=== PATIENT | male | born 1950 | race Caucasian/White ===

== ENCOUNTER 2019-10-21 01:20 | Outpatient (CLI) | payer OTHER, SELFPAY ==
[2019-10-21 18:35] LABS: SARS-CoV-2 RNA PCR Negative
== END 2019-10-21 01:21 | disposition home or self-care (01) ==
LOC: ANHCOVIDDT 01:21
PROVIDERS: Visit Provider Internal Medicine Gastroenterology
DX: Z01.812 Encounter for preprocedural laboratory examination (principal); Z11.59 Encounter for screening for other viral diseases
CPT/HCPCS: 87635; C9803; U0003

== ENCOUNTER 2019-10-23 01:36 | Day surgery (SDC) | payer OTHER, SELFPAY ==
[2019-10-15 13:52] VITALS: BMI 31.9
[2019-10-23 08:17] VITALS: BP 152/94; PULSE 72; RESP 20; TEMP 36.4; O2SAT 97; BMI 32.1
[2019-10-23] MEDS: LACTATED RINGERS 1,000 ML 150 ML IV CONT (08:29)
--- NOTE | 2019-10-23 08:32 | WPDANESEPPF ---
Anes - Initial Pre Proc Eval Procedure: Operation Date: 10/23/19 09:00 Proposed Procedures p Esophagogastroduodenoscopy & Colonoscopy - Paul Story MD Date/Time: 10/23/19 08:32 Surgeon: Paul Story MD Pre Op Diagnosis: Iron Deficient Anemia Patient Data Age: 69 Gender: M Height: 5 ft 10 in Weight: 101.6 kg Last Vital Signs Temp 36.4 C L 10/23/19 08:17 Pulse 72 10/23/19 08:17 Resp 20 10/23/19 08:17 BP 152/94 H 10/23/19 08:17 Pulse Ox 97 10/23/19 08:17 Allergies Allergy/AdvReac Type Severity Reaction Status Date / Time Penicillins Allergy Severe HIVES Verified 10/23/19 08:16 Sulfa (Sulfonamide Allergy Severe HIVES Verified 10/23/19 08:16 Antibiotics) Home Medications Medication Instructions Recorded Confirmed Type amphetamine sulfate 10 mg tablet 30 mg PO BID tablet 09/29/19 10/15/19 History atorvastatin 40 mg tablet 40 mg PO DAILY 09/29/19 10/15/19 History bupropion HCl 100 mg tablet 200 mg PO BID tablet 09/29/19 10/15/19 History buspirone 30 mg tablet 30 mg PO BID 09/29/19 10/15/19 History clonidine HCl 0.1 mg tablet 0.1 mg PO BID tablet 09/29/19 10/15/19 History diazepam 10 mg tablet 10 mg PO TID PRN 09/29/19 10/23/19 History ketoconazole 2 % topical cream 1 applic TOPICAL BID PRN 09/29/19 10/15/19 History levothyroxine 137 mcg capsule 137 mcg PO DAILY 09/29/19 10/15/19 History omeprazole 40 mg capsule,delayed 40 mg PO BID 09/29/19 10/15/19 History release tamsulosin 0.4 mg capsule 0.4 mg PO DAILY 09/29/19 10/15/19 History tretinoin 0.05 % topical cream 1 applic TOPICAL ONCE 09/29/19 10/15/19 History triamcinolone acetonide 0.1 % 1 applic TOPICAL BID 09/29/19 10/15/19 History topical cream Patient hx anesthesia problems: none Family hx anesthesia problems: none PMFSH Past Medical History Medical History Anemia Arthritis Eczema GERD (gastroesophageal reflux disease) Hearing loss Hoarseness Hypothyroidism Shortness of breath Sleep apnea Urinary frequency Weight gain Surgical History Surgical History Hx of CABG Family History Family History Other Arthritis Social History Social History Smoking status: Never smoker Alcohol intake: current Drinks per week: 8 Anes - Eval Final PreProcedure Day of Procedure 10/23/19 08:32 Patient weight: obese Heart: regular rate and rhythm Lungs: clear to auscultation Airway: Mallampati scale class II Neurological: alert and oriented Last oral intake: >/= 8 hours ASA classification: III Emergent: no Anesthetic plan: proceed Anesthesia type and monitoring: general GIVS and standard monitoring Informed Consent: The patient's anesthetic plan and its attendant risks and benefits were discussed with the patient/family/POA. Questions were solicited and answers provided to the satisfaction of the patient/family/POA.
--- NOTE | 2019-10-23 08:37 | PM.HPGS ---
History of Present Illness History of Present Illness Consent: Risks, benefits, and alternatives have been discussed and questions answered. Patient agrees to proceed with procedure. Chief complaint: Iron Deficient Anemia Narrative: Scott Dejesus is a 69 year old W male referred for gastroscopy and colonoscopy for evaluation of iron deficiency anemia. I saw this patient 2 years ago when he was referred for EGD for follow-up of Garcia's esophagus. This was confirmed there was no evidence of dysplasia in the biopsies. Patient is on chronic PPI therapy. He also had been on nonsteroidal inflammatory drugs and did have a gastritis at that time suspicious for vascular antral ectasia. I recommended he discontinue the nonsteroidal inflammatory drugs repeat gastroscopy. Fortunately only stop those a month ago. He has no GI tract symptoms. His last colonoscopy was in 2015 performed by another examiner in [place] which time multiple polyps were removed. There is no family history of colon polyps or colon cancer. [facility] Past Medical History Medical History Anemia Arthritis Eczema GERD (gastroesophageal reflux disease) Hearing loss Hoarseness Hypothyroidism Shortness of breath Sleep apnea Urinary frequency Weight gain Surgical History Surgical History Hx of CABG Family History Family History Other Arthritis Social History Social History Smoking status: Never smoker Alcohol intake: current Drinks per week: 8 Meds Home Medications and Allergies Home Medications Medication Instructions Recorded Confirmed Type amphetamine sulfate 10 mg tablet 30 mg PO BID tablet 09/29/19 10/15/19 History atorvastatin 40 mg tablet 40 mg PO DAILY 09/29/19 10/15/19 History bupropion HCl 100 mg tablet 200 mg PO BID tablet 09/29/19 10/15/19 History buspirone 30 mg tablet 30 mg PO BID 09/29/19 10/15/19 History clonidine HCl 0.1 mg tablet 0.1 mg PO BID tablet 09/29/19 10/15/19 History diazepam 10 mg tablet 10 mg PO TID PRN 09/29/19 10/23/19 History ketoconazole 2 % topical cream 1 applic TOPICAL BID PRN 09/29/19 10/15/19 History levothyroxine 137 mcg capsule 137 mcg PO DAILY 09/29/19 10/15/19 History omeprazole 40 mg capsule,delayed 40 mg PO BID 09/29/19 10/15/19 History release tamsulosin 0.4 mg capsule 0.4 mg PO DAILY 09/29/19 10/15/19 History tretinoin 0.05 % topical cream 1 applic TOPICAL ONCE 09/29/19 10/15/19 History triamcinolone acetonide 0.1 % 1 applic TOPICAL BID 09/29/19 10/15/19 History topical cream Allergies Allergy/AdvReac Type Severity Reaction Status Date / Time Penicillins Allergy Severe HIVES Verified 10/23/19 08:16 Sulfa (Sulfonamide Allergy Severe HIVES Verified 10/23/19 08:16 Antibiotics) Vital Signs Vital Signs - 24 hr 10/23/19 08:17 Temperature 36.4 C L Pulse Rate 72 Respiratory Rate 20 Blood Pressure 152/94 H Pulse Oximetry 97 Exam Const: Orientation/consciousness: patient oriented x3 Resp: Auscultation: clear to auscultation bilaterally Cardio: Rate: regular rate Rhythm: regular rhythm Heart sounds: no murmurs GI: GI Palp: Yes Soft to palpation, No Tenderness to palpation present (GI), Yes No hepatosplenomegaly present and No Palpable mass present Auscultation: normal bowel sounds Neuro: General: patient oriented x3 and no focal motor deficits Extrem: General: no pedal edema Assessment and Plan Additional Plan EGD and colonoscopy for evaluation of iron deficiency anemia
[2019-10-23] MEDS: SIMETHICONE ORAL SUSPENSION 20 MG/0.3 ML 30 ML BOTTLE 0.6 ML IRRIGATION (09:32)
[2019-10-23 09:59] VITALS: BP 104/69; PULSE 71; RESP 18; O2SAT 93
[2019-10-23 10:09] VITALS: BP 130/78; PULSE 69; RESP 23; O2SAT 97
[2019-10-23 10:19] VITALS: BP 146/81; PULSE 67; RESP 24; O2SAT 98
== END 2019-10-23 10:45 | disposition home or self-care (01) ==
PROVIDERS: PCP Internal Medicine; Visit Provider Internal Medicine Gastroenterology
PROC: 0DJ08ZZ Inspection of Upper Intestinal Tract, Via Natural or Artificial Opening Endoscopic (ICD-10-PCS; CPT 43235; principal; 2019-10-23 09:00)
DX: D50.9 Iron deficiency anemia, unspecified (principal); K22.70 Barrett's esophagus without dysplasia; K31.819 Angiodysplasia of stomach and duodenum without bleeding; K21.0 Gastro-esophageal reflux disease with esophagitis; K64.8 Other hemorrhoids; K64.4 Residual hemorrhoidal skin tags; K57.30 Diverticulosis of large intestine without perforation or abscess without bleeding; Z86.010 Personal history of colon polyps; E03.9 Hypothyroidism, unspecified; L30.9 Dermatitis, unspecified; G47.30 Sleep apnea, unspecified; Z95.1 Presence of aortocoronary bypass graft; E66.9 Obesity, unspecified; Z68.32 Body mass index [BMI] 32.0-32.9, adult
CPT/HCPCS: 43239; 43270; 45378; 88305; J2704; J7120

== ENCOUNTER → 2020-07-05 04:13 | Outpatient (CLI) | payer MEDICARE, SELFPAY ==
[2020-07-05 19:58] LABS: SARS-CoV-2 RNA PCR Negative
== END ==
PROVIDERS: PCP Family Medicine; Visit Provider Internal Medicine Gastroenterology
DX: Z01.812 Encounter for preprocedural laboratory examination (principal); Z20.822 Contact with and (suspected) exposure to COVID-19
CPT/HCPCS: C9803; U0003; U0005

== ENCOUNTER 2020-07-08 01:12 | Day surgery (SDC) | payer MEDICARE, SELFPAY ==
[2020-06-29 14:33] VITALS: BMI 30.7
--- NOTE | 2020-07-07 11:28 | WPDANESEPPF ---
Anes - Initial Pre Proc Eval Procedure: Operation Date: 07/08/20 09:45 Proposed Procedures p Esophagogastroduodenoscopy - Maxx Ramirez MD Date/Time: 07/07/20 11:28 Surgeon: Maxx Ramirez MD Pre Op Diagnosis: barrets esophagus Patient Data Age: 70 Gender: M Height: 1.78 m Weight: 97.2 kg Allergies Allergy/AdvReac Type Severity Reaction Status Date / Time Penicillins Allergy Severe HIVES Verified 07/08/20 09:22 Sulfa (Sulfonamide Allergy Severe HIVES Verified 07/08/20 09:22 Antibiotics) Home Medications Medication Instructions Recorded Confirmed Type amphetamine sulfate 10 mg tablet 30 mg PO BID tablet 09/29/19 06/29/20 History atorvastatin 40 mg tablet 40 mg PO DAILY 09/29/19 06/29/20 History bupropion HCl 100 mg tablet 200 mg PO BID tablet 09/29/19 06/29/20 History buspirone 30 mg tablet 30 mg PO BID 09/29/19 06/29/20 History diazepam 10 mg tablet 10 mg PO TID PRN 09/29/19 06/29/20 History ketoconazole 2 % topical cream 1 applic TOPICAL BID PRN 09/29/19 06/29/20 History levothyroxine 137 mcg capsule 137 mcg PO DAILY 09/29/19 06/29/20 History omeprazole 40 mg capsule,delayed 20 mg PO BID 09/29/19 06/29/20 History release tretinoin 0.05 % topical cream 1 applic TOPICAL ONCE 09/29/19 06/29/20 History triamcinolone acetonide 0.1 % 1 applic TOPICAL BID 09/29/19 06/29/20 History topical cream finasteride 5 mg tablet 5 mg PO DAILY 05/27/20 06/29/20 History meloxicam 15 mg tablet 15 mg PO DAILY 05/27/20 06/29/20 History tamsulosin 0.4 mg capsule 0.4 mg PO DAILY #90 cap 06/17/20 06/29/20 Rx clonidine HCl 0.1 mg tablet 0.1 mg PO Q8H #90 tablet 06/29/20 06/29/20 Rx sertraline 50 mg tablet 50 mg PO DAILY 06/29/20 06/29/20 History divalproex 250 mg PO DAILY 07/08/20 07/08/20 History Patient hx anesthesia problems: none Family hx anesthesia problems: none [facility] Past Medical History Medical History (Updated 07/07/20 @ 11:28 by Alvaro Winslow DO) ADD (attention deficit disorder) Anemia Arthritis AVM (arteriovenous malformation) of stomach, acquired CAD (coronary artery disease) Eczema GERD (gastroesophageal reflux disease) Hearing loss Hoarseness Hypertension Hypothyroidism Hypothyroidism (acquired) Shortness of breath Sleep apnea Urinary frequency Weight gain Surgical History Surgical History (Updated 07/07/20 @ 11:28 by Alvaro Winslow DO) S/P CABG x 3 Family History Family History Other Arthritis Social History Social History (Updated 06/29/20 @ 09:54 by Melissa Nelson) Social History: Smoking status: Never smoker Second hand tobacco smoke exposure: No Alcohol intake: current Drinks per week: 8 Alcohol use details: socially Substance use: never Substance use type: does not use Living arrangements: alone Gender identity (if verbalized by the patient): Male Spiritual care concerns: No Anes - Eval Final PreProcedure Day of Procedure 07/07/20 11:28 Patient weight: obese Heart: regular rate and rhythm Lungs: clear to auscultation and normal air movement Airway: Mallampati scale class II Neurological: alert and oriented Last oral intake: >/= 8 hours ASA classification: III Emergent: no Anesthetic plan: proceed Anesthesia type and monitoring: general GIVS and standard monitoring Informed Consent: The patient's anesthetic plan and its attendant risks and benefits were discussed with the patient/family/POA. Questions were solicited and answers provided to the satisfaction of the patient/family/POA.
[2020-07-08 09:23] VITALS: BP 172/97; PULSE 76; RESP 18; TEMP 36.7; O2SAT 97; BMI 31.2
[2020-07-08] MEDS: LACTATED RINGERS 1,000 ML 150 ML IV CONT (09:31)
--- NOTE | 2020-07-08 09:45 | PM.HPGS ---
History of Present Illness History of Present Illness Consent: Risks, benefits, and alternatives have been discussed and questions answered. Patient agrees to proceed with procedure. 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 He also has Garcia's esophagus Review of Systems Review of Systems: All systems reviewed & are unremarkable except as noted in HPI and below PMFSH Past Medical History Medical History ADD (attention deficit disorder) Anemia Arthritis AVM (arteriovenous malformation) of stomach, acquired CAD (coronary artery disease) Eczema GERD (gastroesophageal reflux disease) Hearing loss Hoarseness Hypertension Hypothyroidism Hypothyroidism (acquired) Shortness of breath Sleep apnea Urinary frequency Weight gain Surgical History Surgical History S/P CABG x 3 Family History Family History Other Arthritis Social History Social History Social History: Smoking status: Never smoker Second hand tobacco smoke exposure: No Alcohol intake: current Drinks per week: 8 Alcohol use details: socially Substance use: never Substance use type: does not use Living arrangements: alone Gender identity (if verbalized by the patient): Male Spiritual care concerns: No Meds Home Medications and Allergies Home Medications Medication Instructions Recorded Confirmed Type amphetamine sulfate 10 mg tablet 30 mg PO BID tablet 09/29/19 07/08/20 History atorvastatin 40 mg tablet 40 mg PO DAILY 09/29/19 07/08/20 History bupropion HCl 100 mg tablet 200 mg PO BID tablet 09/29/19 07/08/20 History buspirone 30 mg tablet 30 mg PO BID 09/29/19 07/08/20 History diazepam 10 mg tablet 10 mg PO TID PRN 09/29/19 07/08/20 History ketoconazole 2 % topical cream 1 applic TOPICAL BID PRN 09/29/19 07/08/20 History levothyroxine 137 mcg capsule 137 mcg PO DAILY 09/29/19 07/08/20 History omeprazole 40 mg capsule,delayed 20 mg PO BID 09/29/19 07/08/20 History release tretinoin 0.05 % topical cream 1 applic TOPICAL ONCE 09/29/19 07/08/20 History triamcinolone acetonide 0.1 % 1 applic TOPICAL BID 09/29/19 07/08/20 History topical cream finasteride 5 mg tablet 5 mg PO DAILY 05/27/20 07/08/20 History meloxicam 15 mg tablet 15 mg PO DAILY 05/27/20 07/08/20 History tamsulosin 0.4 mg capsule 0.4 mg PO DAILY #90 cap 06/17/20 07/08/20 Rx clonidine HCl 0.1 mg tablet 0.1 mg PO Q8H #90 tablet 06/29/20 07/08/20 Rx sertraline 50 mg tablet 50 mg PO DAILY 06/29/20 07/08/20 History divalproex 250 mg PO DAILY 07/08/20 07/08/20 History Allergies Allergy/AdvReac Type Severity Reaction Status Date / Time Penicillins Allergy Severe HIVES Verified 07/08/20 09:22 Sulfa (Sulfonamide Allergy Severe HIVES Verified 07/08/20 09:22 Antibiotics) Vital Signs Vital Signs - 24 hr 07/08/20 09:23 Temperature 36.7 C Pulse Rate 76 Respiratory Rate 18 Blood Pressure 172/97 H Pulse Oximetry 97 Exam Const: General: alert Orientation/consciousness: patient oriented x3 Resp: Auscultation: clear to auscultation bilaterally Cardio: Rhythm: regular rhythm GI: GI Palp: Yes Soft to palpation and No Tenderness to palpation present (GI) Neuro: General: patient oriented x3 Assessment and Plan Assessment and plan (1) Gastric antral vascular ectasia (watermelon stomach): Code(s): K31.819 - Angiodysplasia of stomach and duodenum without bleeding Status: Acute Assessment and Plan: EGD with possible biopsy or dilatation or cautery.
[2020-07-08] MEDS: BENZOCAINE (*SP) 60 ML SPRAY CAN (HURRICAINE) 1 SPRAY MUCOUS MEM (09:53)
[2020-07-08 10:05] VITALS: BP 123/92; PULSE 73; RESP 26; O2SAT 96
[2020-07-08 10:15] VITALS: BP 146/88; PULSE 73; RESP 25; O2SAT 95
[2020-07-08 10:25] VITALS: BP 159/97; PULSE 68; RESP 20; O2SAT 97
== END 2020-07-08 10:32 | disposition home or self-care (01) ==
PROVIDERS: PCP Family Medicine; Visit Provider Internal Medicine Gastroenterology
PROC: 0DJ08ZZ Inspection of Upper Intestinal Tract, Via Natural or Artificial Opening Endoscopic (ICD-10-PCS; CPT 43235; principal; 2020-07-08 09:45)
DX: K31.819 Angiodysplasia of stomach and duodenum without bleeding (principal); K22.70 Barrett's esophagus without dysplasia; K21.9 Gastro-esophageal reflux disease without esophagitis; E03.9 Hypothyroidism, unspecified; M19.90 Unspecified osteoarthritis, unspecified site; D64.9 Anemia, unspecified; I25.10 Atherosclerotic heart disease of native coronary artery without angina pectoris; I10 Essential (primary) hypertension; Z95.1 Presence of aortocoronary bypass graft; G47.30 Sleep apnea, unspecified; E66.9 Obesity, unspecified; Z68.31 Body mass index [BMI] 31.0-31.9, adult
CPT/HCPCS: 43270; C9803; J2704; J7120; U0003; U0005

== ENCOUNTER 2020-08-04 07:23 | Outpatient (CLI) | payer MEDICARE, SELFPAY ==
--- NOTE | 2020-08-04 07:33 | EST_ITS ---
Patient Info Name: Scott Dejesus Age: 70 years : 1950 Gender: Male Ht: 70 in Wt: 220 lbs BSA: 2.25 m2 HR: 82 bpm BP: 161 / 84 mmHg Technical Quality: Fair Exam Date: 08/04/2020 8:54 AM Exam Location: [facility] Pulmonary Exam Room: STRESS LAB Patient Status: Outpatient Admit Date: 08/04/2020 Staff Ordering Physician: Jose Riley DO Client Relations Associate: Lorri Coy RDCS Attending Provider: Referring Physician: Osvaldo MICHAEL; Exercise Technologist: Alva Umana CT Exercise Physician: Jose Riley DO Exam Type: CA stress echo w contrast Study Info Indications - SETHI Treadmill exercise stress echocardiogram is performed. Contrast administered to opacify the left ventricle and to improve the deliniation of the left ventricular endocardial borders. Contrast/Agitated Saline Contrast/Ag. Saline: Definity Amount: 2.00 ml Administered By: Sasha Momin RN New IV Access: Outer Forearm and Right Site Condition: IV removed Summary 1. 1. Negative Johnny exercise stress test for ischemic ST changes by ECG criteria. 2. 2. Reduced functional capacity, achieving 5.9 METs of workload. 3. 3. Appropriate HR response to exercise. 4. 4. Appropriate HR recovery at 1 minute post exercise. 5. 5. Negative stress echocardiogram for ischemia by wall motion analysis. 6. 6. Patient informed of the above results. Stress Echo Findings Left Ventricle Appropriate increase in LV endocardial thickening with systole. Appropriate augmentation of contractility with systole. No wall motion abnormality. Left Ventricle Normal LV systolic function, no wall motion abnormality. Protocol: Johnny Stress ECG Details Stage: REST Duration (min): 2 min : 36 sec Speed (mph): 0.0 Grade (%): 0 HR (bpm): 78 SBP (mmHg): 161 DBP (mmHg): 84 METS: --- Stage: REST Duration (min): 36 min : 41 sec Speed (mph): 0.0 Grade (%): 0 HR (bpm): 90 SBP (mmHg): 161 DBP (mmHg): 84 METS: --- Stage: STAGE 1 Duration (min): 1 min : 0 sec Speed (mph): 1.7 Grade (%): 10 HR (bpm): 110 SBP (mmHg): 161 DBP (mmHg): 84 METS: --- Stage: STAGE 1 Duration (min): 2 min : 0 sec Speed (mph): 1.7 Grade (%): 10 HR (bpm): 119 SBP (mmHg): 161 DBP (mmHg): 84 METS: --- Stage: STAGE 1 Duration (min): 3 min : 0 sec Speed (mph): 1.7 Grade (%): 10 HR (bpm): 127 SBP (mmHg): 133 DBP (mmHg): 73 METS: --- Stage: STAGE 2 Duration (min): 0 min : 48 sec Speed (mph): 0.0 Grade (%): 0 HR (bpm): 137 SBP (mmHg): 133 DBP (mmHg): 73 METS: --- Stage: RECOVERY Duration (min): 0 min : 11 sec Speed (mph): 0.0 Grade (%): 0 HR (bpm): 133 SBP (mmHg): 133 DBP (mmHg): 73 METS: --- Stage: RECOVERY Duration (min): 1 min : 11 sec Speed (mph): 0.0 Grade (%): 0 HR (bpm): 112 SBP (mmHg): 133 DBP (mmHg): 73 METS: --- Stage: RECOVERY Duration (min): 2 min : 11 sec Speed (mph): 0.
--- NOTE | 2020-08-04 07:33 | ECHO_ITS ---
Patient Info Name: Scott Dejesus Age: 70 years : 1950 Gender: Male Ht: 70 in Wt: 220 lbs BSA: 2.25 m2 HR: 79 bpm BP: 164 / 100 mmHg Heart Rhythm: Sinus Rhythm Exam Date: 08/04/2020 7:39 AM Exam Location: [facility] Pulmonary Patient Status: Outpatient Admit Date: 08/04/2020 Staff Ordering Physician: Jose Riley DO Casting House Laborer: Mindy Maldonado RDCS Attending Provider: Jose Riley DO Exam Type: CA echo doppler color flow Study Info Indications R06.00 - Dyspnea, unspecified Complete two-dimensional, color flow and Doppler transthoracic echocardiogram is performed. Summary 1. Complete two-dimensional, color flow and Doppler transthoracic echocardiogram is performed. 2. Left ventricular chamber dimension is normal. 3. Ventricular septum is sigmoid shaped. No LVOT obstruction. 4. Left ventricular systolic function is normal, estimated at 60-65%. 5. The left ventricular diastolic function is grade I diastolic dysfunction. 6. E/e' 11 is mildly elevated. 7. There is moderate aortic valve sclerosis. 8. There is trace tricuspid valve regurgitation. 9. There is trace pulmonic regurgitation. Left Ventricle E/e' 11 is mildly elevated. Ventricular septum is sigmoid shaped. No LVOT obstruction. Left ventricular chamber dimension is normal. Left ventricular systolic function is normal, estimated at 60-65%. The left ventricular diastolic function is grade I diastolic dysfunction. Right Ventricle Right ventricular chamber dimension is normal. Right ventricular systolic function is normal. Left Atria Left atrial chamber dimension is normal. Right Atria Right atrial chamber dimension is normal. Aortic Valve The aortic valve is trileaflet. There is moderate aortic valve sclerosis. There is no aortic valve stenosis. There is no aortic valve regurgitation. Pulmonic Valve There is trace pulmonic regurgitation. Mitral Valve There is no mitral valve stenosis. There is no mitral valve regurgitation. Tricuspid Valve There is trace tricuspid valve regurgitation. RVSP is not calculated due to an inadequate TR jet. Pericardium/Pleural There is no pericardial effusion. Inferior Vena Cava Normal inferior vena cava with >50% collapse upon inspiration consistent with normal right atrial pressure, 5 mmHg. Aorta The aortic root size at the sinus of Valsalva is normal. Left Ventricular Outflow Tract Name Value Normal LVOT 2D LVOT Diameter 1.9 cm LVOT Doppler LVOT Peak Gradient 8 mmHg LVOT Mean Gradient 4 mmHg LVOT VTI 30 cm LVOT VTI/AV VTI Ratio 0.7 LVOT Stroke Volume 86 ml LVOT CO 5.8 l/min LVOT CI 2.6 l/min/m2 Pulmonic Valve Name Value Normal RVOT Doppler
== END 2020-08-04 07:24 | disposition home or self-care (01) ==
PROVIDERS: PCP Family Medicine; Visit Provider Internal Medicine Cardiovascular Disease
DX: R06.00 Dyspnea, unspecified (principal); I35.8 Other nonrheumatic aortic valve disorders
CPT/HCPCS: 93306; 93351; C8930

== ENCOUNTER 2020-10-12 07:59 | Outpatient (CLI) | payer MEDICARE, SELFPAY ==
[2020-10-12 09:01] LABS: Basophils Percent Auto 0.2 % (0.2-1.2); Eosinophils Absolute Auto 0.3 K/mm3 (0-0.3); Eosinophils Percent Auto 6.3 % (0-4.4); Hematocrit 41.8 % (42.0-52.0); Hemoglobin 14.5 g/dL (14.0-18.0); Immature Granulocyte Absolute 0.03 K/mm3 (0.00-0.031); Immature Granulocyte Percent A 0.6 % (0-0.5); Lymphocytes Absolute Auto 0.97 K/mm3 (0.9-3.2); Lymphocytes Percent Auto 18.7 % (18.3-44.2); Mean Corpuscular HGB Conc 34.7 g/dl (32-36); Mean Corpuscular Volume 97.9 fl (80-100); Mean Platelet Volume 10.3 fl (7.4-10.4); Monocytes Absolute Auto 0.5 K/mm3 (0.1-0.6); Monocytes Percent Auto 9.6 % (2.6-8.5); Neutrophils Absolute Auto 3.4 K/mm3 (1.3-6.7); Neutrophils Percent Auto 64.6 % (45.5-73.1); Platelet Count Result 202 k/mm3 (150-375); Red Blood Count 4.27 M/mm3 (4.6-6.20); Red Cell Distribution Width 12.6 % (11.5-14.5); White Blood Count 5.2 K/mm3 (4.5-10.0)
[2020-10-12 09:10] LABS: Urine Cotinine NEGATIVE
[2020-10-12 09:11] LABS: Albumin Level 4.3 g/dL (3.5-5.1); Anion Gap 8 mmol/L (8-16); Blood Urea Nitrogen 11 mg/dL (9-20); Calcium 9.3 mg/dL (8.4-10.2); Carbon Dioxide 27 mmol/L (22-30); Chloride 105 mmol/L (98-107); Estimated Glomerular Filt Rate > 60; Glucose 112 mg/dL (65-110); Potassium 4.2 mmol/L (3.4-5.0); Sodium 140 mmol/L (137-145)
[2020-10-12 09:16] LABS: Hemoglobin A1C 5.3 % (<5.7)
[2020-10-12 09:18] LABS: Add Urine Microscopic? NO; Appearance Urine Clear (Clear); Bilirubin Urine Negative (Negative); Blood Urine Negative (Negative); Color Urine Yellow (Yellow); Glucose Urine UA Negative (Negative); Ketones Urine Negative (Negative); Leukocyte Esterase Ur Negative LEU/UL (Negative); Nitrate Urine Negative (Negative); Protein Urine Negative (Negative); Specific Grav Ur 1.013 (1.001-1.035); Urobilinogen Urine Negative mg/dL (<2.0)
[2020-10-12 09:23] LABS: Prothrombin Time 12.8 Seconds (11.1-14.7)
[2020-10-12 09:24] LABS: Partial Thromboplastin Time 29.4 SECONDS (22.3-36.8)
== END 2020-10-12 08:00 | disposition home or self-care (01) ==
PROVIDERS: PCP Family Medicine; Visit Provider Orthopaedic Surgery
DX: Z01.812 Encounter for preprocedural laboratory examination (principal); M16.11 Unilateral primary osteoarthritis, right hip; Z51.81 Encounter for therapeutic drug level monitoring; Z79.899 Other long term (current) drug therapy
CPT/HCPCS: 80048; 80307; 81003; 82040; 83036; 85025; 85610; 85730; 87081

== ENCOUNTER 2020-10-27 00:23 | Day surgery (SDC) | payer MEDICARE, SELFPAY ==
[2020-10-12 08:26] VITALS: BP 160/86; PULSE 62; RESP 20; TEMP 36.5; O2SAT 97; BMI 34.2
--- NOTE | 2020-10-26 12:51 | WPDANESEPPF ---
Anes - Initial Pre Proc Eval Procedure: Operation Date: 10/27/20 07:30 Proposed Procedures p Right Total Hip Arthroplasty - Fabian Long MD Date/Time: 10/26/20 12:51 Surgeon: Fabian Long MD Pre Op Diagnosis: Right Hip DJD Patient Data Age: 70 Gender: M Height: 1.75 m Weight: 105.2 kg Last Vital Signs Temp 36.5 C 10/12/20 08:26 Pulse 62 10/12/20 08:26 Resp 20 10/12/20 08:26 BP 160/86 H 10/12/20 08:26 Pulse Ox 97 10/12/20 08:26 Allergies Allergy/AdvReac Type Severity Reaction Status Date / Time Penicillins Allergy Severe HIVES Verified 10/27/20 06:53 Sulfa (Sulfonamide Allergy Severe HIVES Verified 10/27/20 06:53 Antibiotics) Home Medications Medication Instructions Recorded Confirmed Type atorvastatin 40 mg tablet 40 mg PO DAILY 09/29/19 10/12/20 History bupropion HCl 100 mg tablet 200 mg PO BID tablet 09/29/19 10/12/20 History buspirone 30 mg tablet 30 mg PO BID 09/29/19 10/12/20 History levothyroxine 137 mcg capsule 137 mcg PO DAILY 09/29/19 10/12/20 History omeprazole 40 mg capsule,delayed 20 mg PO BID 09/29/19 10/12/20 History release finasteride 5 mg tablet 5 mg PO DAILY 05/27/20 10/12/20 History sertraline 50 mg tablet 50 mg PO DAILY 06/29/20 10/12/20 History divalproex 250 mg PO DAILY 07/08/20 10/12/20 History carvedilol 6.25 mg tablet 6.25 mg PO Q12H #60 tablet 07/15/20 10/12/20 Rx chlorhexidine gluconate 4 % 1 applic TOPICAL ONCE #237 ml 10/11/20 10/12/20 Rx topical liquid clonidine HCl See Rx Instructions .ROUTE .COMPLEX 10/12/20 10/12/20 History tamsulosin 0.4 mg PO QAM 10/12/20 10/12/20 History Other Studies: Exam Date: 08/04/2020 8:54 AM Exam Type: CA stress echo w contrast Summary 1. 1. Negative Johnny exercise stress test for ischemic ST changes by ECG criteria. 2. 2. Reduced functional capacity, achieving 5.9 METs of workload. 3. 3. Appropriate HR response to exercise. 4. 4. Appropriate HR recovery at 1 minute post exercise. 5. 5. Negative stress echocardiogram for ischemia by wall motion analysis. Admit Date: 08/04/2020 Exam Type: CA echo doppler color flow Summary 1. Complete two-dimensional, color flow and Doppler transthoracic echocardiogram is performed. 2. Left ventricular chamber dimension is normal. 3. Ventricular septum is sigmoid shaped. No LVOT obstruction. 4. Left ventricular systolic function is normal, estimated at 60-65%. 5. The left ventricular diastolic function is grade I diastolic dysfunction. 6. E/e' 11 is mildly elevated. 7. There is moderate aortic valve sclerosis. 8. There is trace tricuspid valve regurgitation. 9. There is trace pulmonic regurgitation. Patient hx anesthesia problems: none Family hx anesthesia problems: none PMFSH Past Medical History Medical History (Updated 10/26/20 @ 12:52 by Jj Lagos MD) ADD (attention deficit disorder) Anemia Arthritis AVM (arteriovenous malformation) of stomach, acquired Benign essential HTN CAD (coronary artery disease) Degenerative joint disease of right hip Eczema GERD (gastroesophageal reflux disease) Hearing loss Hoarseness Hyperlipidemia Hypertension Hypothyroidism Hypothyroidism (acquired) Shortness of breath Sleep apnea Urinary frequency Weight gain Surgical History Surgical History S/P CABG x 3 Family History Family History Other Arthritis Social History Social History Social History: Second hand tobacco smoke exposure: No Alcohol intake: current Alcohol use details: Occasionally Substance use: never Substance use type: does not use Living arrangements: alone Gender identity (if verbalized by the patient): Male Spiritual care concerns: No Anes - Eval Final PreProcedure Day of Procedure 10/26/20 12:51
[2020-10-27] VITALS (25 sets, daily range): BP systolic 125–178; BP diastolic 63–100; PULSE 66–96; RESP 12–20; TEMP 36–36.4; O2SAT 93–100
--- NOTE | ~2020-10-27 | XR_ITS ---
EXAMINATION: XR hip RT 1V DATE: 10/27/2020 11:25 INDICATION: Right hip arthroplasty. Postop. TECHNIQUE: A single view of right hip was obtained. COMPARISON: Right hip radiographs 05/20/2020 FINDINGS: There is a total right hip arthroplasty in near-anatomic alignment. No fracture. There is g as in the soft tissues, consistent with recent surgery. Skin lexa are noted. IMPRESSION: 1. Total right hip arthroplasty in near-anatomic alignment. Reviewed, dictated and finalized at location B.
[2020-10-27] MEDS: ACETAMINOPHEN 500 MG TABLET 1000 MG PO (06:54)
[2020-10-27] MEDS: LACTATED RINGERS 1,000 ML 30 ML IV CONT ×2 (07:00→11:10)
[2020-10-27] MEDS: TRANEXAMIC ACID 1,000MG/ISO100 1,000 MG/100 ML BAG 200 MG IVPB (07:05)
--- NOTE | 2020-10-27 07:18 | WPDHPUPDATE1 ---
History and Physical Update Update Date/Time: 10/27/20 07:18 History and Physical has been reviewed, including an updated exam of the patient. There are NO changes in the patient's condition. Risks, benefits, and alternatives have been discussed and questions answered. Patient agrees to proceed with procedure.
--- NOTE | 2020-10-27 07:26 | SUR.PREOP ---
0650-PT ARRIVAL TO PREOP-PT WAS 37 MINUTES LATE ARRIVING AND AN [id number] MINUTE REGISTRATION DELAY.
[2020-10-27] MEDS: ceFAZolin 2 GM/D5W 50 ML 2 GM/50 ML BAG IVPB ×2 (07:49→17:33)
[2020-10-27] MEDS: BUPIVACAINE HCL 0.5% PF 30 ML VIAL INFILTRATE (10:33)
--- NOTE | 2020-10-27 11:26 | P.OP_ITS ---
Procedure Note - Detailed Date of Procedure 10/27/20 Pre-op Diagnosis Right Hip DJD Post-op Diagnosis same Procedure Performed R BRITTANY Surgeon Fabian Long MD Anesthesia general Description of Procedure THE PATIENT WAS TAKEN TO THE OPERATING ROOM IN STABLE CONDITION AND WAS PLACED IN THE LATERAL DECUBITUS AND THE RIGHT LOWER EXTREMITY WAS PREPPED AND DRAPED IN THE STERILE FASHION. INCISION WAS MADE IN THE POSTERIOR LATERAL SIDE OF THE HIP, DOWN TO THE FASCIA LAYER. THE FASCIA WAS INCISED. THE HIP WAS EXPOSED. THE SHORT EXTERNAL ROTATORS WERE EXPOSED. THE SCIATIC NERVE WAS IDENTIFIED. INCISION WAS MADE THROUGH THE SHORT EXTERNAL ROTATORS AND THE CAPSULE OF THE HIP JOINT. THE HIP WAS DISLOCATED. AN OSTEOTOMY WAS MADE TO THE FEMORAL NECK ABOUT 1 CM PROXIMAL TO THE LESSER TROCHANTER. THE ACETABULUM WAS EXPOSED. THERE WAS SEVERE DJD SEEN. BEGINNING WITH A 44 REAMER THE ACETABULUM WAS REAMED TO 53 MM. A 53 MM TRIAL WAS PLACED IN 35 DEG OF ABDUCTION AND ANTEVERSION WAS IN ALIGNMENT WITH THE TRANS ACETABULAR LIGAMENT. THE FIT WAS EXCELLENT. THE TRIAL WAS REMOVED. A 54 MM BIOMET G7 COMPONENT WAS THEN TAPPED IN TO PLACE IN 35 DEG OF ABDUCTION AND ANTEVERSION IN ALIGNMENT WITH THE TRANSVERSE ACETABULAR LIGAMENT. THE FIT WAS EXCELLENT. THE ACETABULAR LINER WAS PLACED AND CHECKED FOR STABILITY. NEXT THE FEMUR WAS PREPARED WITH INITIAL CANAL FINDER THEN SEQUENTIAL BROACHING WITH A TAPERLOC HIP SYSTEM, UNTIL AN 8 BROACH FIT WELL IN 15 OF ANTEVERSION. A 0 HIGH OFFSET NECK WITH 36 MM HEAD TRIAL WAS PLACED. THE MARLEE TEST WAS EXCELLENT AND THE STABILITY IN FLEXION AND ROTATION WAS EXCELLENT. LEG LENGTHS WERE GROSSLY EQUAL. TRIALS WERE REMOVED. A BIOMET TAPERLOC 8 STEM WAS PLACED WITH A HIGH OFFSET NECK THE FIT WAS EXCELLENT IN 15 DEG OF ANTEVERSION. A 0 CERAMIC 36 MM FEMORAL HEAD WAS PLACED. THE HIP WAS TRIALED AND THE STABILITY WAS EXCELLENT WERE THE LEG LENGTHS AND THE SCHUK TEST. THE WOUND WAS IRRIGATED WITH STERILE BETADINE AND WATER FOR 3 MIN. THEN WASHED AGAIN. THE CAPSULE AND THE EXTERNAL ROTATORS WERE APPROXIMATED WITH NUMBER 1 VICRYL. THE FASCIA WITH No 2 QUIL AND THE SUB CUTANEOUS LAYER WITH 2-0 ABSORBABLE SUTURE WITH A RUNNING 3-0 SUBCUTICULAR LAYER WELL. DERMABOND WAS PLACED AND STERILE DRESSING WAS APPLIED. PATIENT WAS PLACED BACK ON TO THE [place] POSITION AND WAS EXTUBATED Estimated Blood Loss -300.0 Complications No immediate complications Condition stable Disposition PACU
[2020-10-27] MEDS: fentaNYL CITRATE INJ (*CRX) 100 MCG/2 ML VIAL 25 MCG IV PUSH ×11 (11:30→13:44)
[2020-10-27] MEDS: diazePAM INJ (*CRX) 10 MG/2 ML SYRINGE 5 MG IV PUSH ×2 (12:04→13:00)
[2020-10-27] MEDS: KETOROLAC 30 MG/ML VIAL (*BKC) IV PUSH (12:08)
[2020-10-27] MEDS: HYDROmorphone HCL INJ (*CRX) 1 MG/ML SYR 0.5 MG IV PUSH (12:43)
--- NOTE | 2020-10-27 14:01 | SUR.PHASEI ---
[id number] sbar faxed floor notified
--- NOTE | 2020-10-27 15:30 | SUR.PHASEI ---
1530- Notified Dr. Long and Dr. Mcclain patient will be staying overnight due to feeling nausea and dizziness after working with physical therapy. Per Physical Therapist, Lorri patient's safest option is to stay overnight to be reassessed by physical therapy in morning prior to discharge home.
[2020-10-27] MEDS: ONDANSETRON INJ 4 MG/2 ML VIAL IV PUSH ×2 (15:33→19:59)
--- NOTE | 2020-10-27 15:59 | SUR.PHASEII ---
1559- SBAR faxed to [address] [place] [address]; notified [employer].
--- NOTE | 2020-10-27 16:07 | SUR.PHASEII ---
1605- Report given to BRONWYN Browne all questions and concerns answered at this time. Per BRONWYN Browne she will notify us once room 257 is cleaned. 1607- Notified patient and son report given to RN and awaiting room to be cleaned prior to admission to room 257.
--- NOTE | 2020-10-27 16:50 | ADMGEN ---
This patient, Scott Dejesus, was admitted to Medical Room 257-. Patient/family oriented to hospital policies and general routines including ID bracelet, bed and alarms, visiting hours, pain management, procedures, bathroom and other care routines, personal items, smoking policy, room service/diet, and visiting hours. Information on how to activate the Rapid Response Team has been discussed. Patient/Family are encouraged to report perceived risks to care and to ask questions if they do not understand what they are told or what they should do.
[2020-10-27 18:05] LABS: Hematocrit 36.2 % (42.0-52.0); Hemoglobin 12.3 g/dL (14.0-18.0)
[2020-10-27] MEDS: DOCUSATE SODIUM 100 MG CAPSULE PO (18:11)
[2020-10-27] MEDS: KETOROLAC 15 MG/ML VIAL (*BKC) IV PUSH (18:12)
[2020-10-27] MEDS: buPROPion HCL 100 MG TABLET 200 MG PO (18:14)
[2020-10-27] MEDS: PANTOPRAZOLE 40 MG TABLET PO (18:14)
[2020-10-27] MEDS: busPIRone HCL 10 MG TABLET 30 MG PO (18:15)
[2020-10-27] MEDS: MORPHINE SULFATE (*CRX) 4 MG/ML INJ 3 MG IV PUSH (19:59)
[2020-10-27] MEDS: diazePAM (*CRX) 5 MG TABLET PO (21:53)
[2020-10-27] MEDS: oxyCODONE HCL (*CRX) 5 MG TAB IR PO (21:53)
[2020-10-27] MEDS: carvediloL 6.25 MG TABLET PO (21:54)
[2020-10-27] MEDS: ASPIRIN 325 MG ENTERIC TABLET PO (21:54)
[2020-10-28] MEDS: KETOROLAC 15 MG/ML VIAL (*BKC) IV PUSH ×3 (00:20→12:40)
[2020-10-28] MEDS: ceFAZolin 2 GM/D5W 50 ML 2 GM/50 ML BAG IVPB ×2 (00:20→08:47)
[2020-10-28 02:01] VITALS: BP 109/58; PULSE 90; RESP 20; TEMP 36.1; O2SAT 98
[2020-10-28 05:39] LABS: Basophils Percent Auto 0.2 % (0.2-1.2); Eosinophils Percent Auto 0.4 % (0-4.4); Hematocrit 32.3 % (42.0-52.0); Hemoglobin 10.8 g/dL (14.0-18.0); Immature Granulocyte Absolute 0.05 K/mm3 (0.00-0.031); Immature Granulocyte Percent A 0.6 % (0-0.5); Lymphocytes Absolute Auto 0.91 K/mm3 (0.9-3.2); Lymphocytes Percent Auto 10.1 % (18.3-44.2); Mean Corpuscular HGB Conc 33.4 g/dl (32-36); Mean Corpuscular Hemoglobin 34.4 pg (26-34); Mean Corpuscular Volume 102.9 fl (80-100); Mean Platelet Volume 10.7 fl (7.4-10.4); Monocytes Absolute Auto 1.1 K/mm3 (0.1-0.6); Monocytes Percent Auto 12.4 % (2.6-8.5); Neutrophils Absolute Auto 6.8 K/mm3 (1.3-6.7); Neutrophils Percent Auto 76.3 % (45.5-73.1); Platelet Count Result 171 k/mm3 (150-375); Red Blood Count 3.14 M/mm3 (4.6-6.20)
[2020-10-28 05:54] LABS: Anion Gap 4 mmol/L (8-16); Blood Urea Nitrogen 17 mg/dL (9-20); Calcium 8.5 mg/dL (8.4-10.2); Carbon Dioxide 25 mmol/L (22-30); Chloride 104 mmol/L (98-107); Estimated CRCL calculation 65 ml/min; Estimated Glomerular Filt Rate > 60; Glucose 116 mg/dL (65-110); Potassium 4.1 mmol/L (3.4-5.0); Sodium 133 mmol/L (137-145)
[2020-10-28 06:01] VITALS: BP 125/65; PULSE 60; RESP 20; TEMP 36.3; O2SAT 98
[2020-10-28] MEDS: LEVOTHYROXINE SODIUM 112 MCG TABLET PO (06:17)
[2020-10-28] MEDS: LEVOTHYROXINE SODIUM 25 MCG TABLET PO (06:17)
[2020-10-28] MEDS: diazePAM (*CRX) 5 MG TABLET PO (06:48)
[2020-10-28] MEDS: oxyCODONE HCL (*CRX) 5 MG TAB IR PO ×2 (06:49→12:40)
[2020-10-28 08:45] VITALS: PULSE 93
[2020-10-28] MEDS: ASPIRIN 325 MG ENTERIC TABLET PO (08:45)
[2020-10-28] MEDS: carvediloL 6.25 MG TABLET PO (08:45)
[2020-10-28] MEDS: busPIRone HCL 10 MG TABLET 30 MG PO (08:46)
[2020-10-28] MEDS: DOCUSATE SODIUM 100 MG CAPSULE PO (08:46)
[2020-10-28] MEDS: FINASTERIDE 5 MG TABLET PO (08:46)
[2020-10-28] MEDS: ATORVASTATIN 40 MG TABLET PO (08:46)
[2020-10-28] MEDS: buPROPion HCL 100 MG TABLET 200 MG PO (08:46)
[2020-10-28] MEDS: PANTOPRAZOLE 40 MG TABLET PO (08:46)
[2020-10-28] MEDS: DIVALPROEX SODIUM ER 250 MG TAB.24H PO (08:46)
[2020-10-28] MEDS: TAMSULOSIN HCL 0.4 MG CAPSULE PO (08:47)
[2020-10-28] MEDS: SERTRALINE HCL 50 MG TABLET PO (08:47)
[2020-10-28] MEDS: MORPHINE SULFATE (*CRX) 4 MG/ML INJ 3 MG IV PUSH (08:54)
--- NOTE | 2020-10-28 09:17 | WPDANESPN ---
Anes - Prog Note Post-Op Date/Time: 10/28/20 09:17 Cardiovascular status: normal Respiratory status: normal Airway patency: baseline Mental status: baseline Post-Op hydration status: normal Vital Signs: Last Vital Signs Temp 36.3 C L 10/28/20 06:01 Pulse 93 10/28/20 08:45 Resp 20 10/28/20 06:01 BP 125/65 10/28/20 06:01 Pulse Ox 98 10/28/20 06:01 Pain Score (VAS): 3 I/O: Intake & Output 10/27/20 10/28/20 10/28/20 23:59 07:59 15:59 Intake Total 50 350 Output Total 500 Balance 50 -150 Laboratory Tests 10/28/20 05:33 10/28/20 05:33 10/27/20 10/28/20 10/28/20 17:45 05:33 05:33 WBC 9.0 RBC 3.14 L Hgb 12.3 L 10.8 L Hct 36.2 L 32.3 L MCV 102.9 H MCH 34.4 H MCHC 33.4 RDW 13.0 Plt Count 171 MPV 10.7 H Immature Gran % (Auto) 0.6 H Neut % (Auto) 76.3 H Lymph % (Auto) 10.1 L Mcclain % (Auto) 12.4 H Eos % (Auto) 0.4 Baso % (Auto) 0.2 Lymph # (Auto) 0.91 Mcclain # (Auto) 1.1 H Eos # (Auto) 0.0 Baso # (Auto) 0.0 Abs Immat Gran (auto) 0.05 H Absolute Neuts (auto) 6.8 H Absolute Nucleated RBC 0.0 Nucleated RBC % 0.0 Sodium 133 L Potassium 4.1 Chloride 104 Carbon Dioxide 25 Anion Gap 4 L BUN 17 Creatinine 1.10 Estim Creat Clear Calc 65 Estimated GFR > 60 Glucose 116 H Calcium 8.5 Post-procedural complaints: none Patient Feedback: Patient satisfied with anesthetic care.
[2020-10-28 10:26] VITALS: BP 133/61; PULSE 77; RESP 18; TEMP 36.1; O2SAT 95
[2020-10-28 14:17] VITALS: BP 122/57; PULSE 78; RESP 18; TEMP 36.1; O2SAT 97
--- NOTE | 2020-10-28 17:15 | PM.PNORT ---
Progress Note: A&P Additional Plan POD 1 DOING WELL OK TO DC HOME F/U IN 3 WEEKS. Subjective Subjective Date/Time Seen: 10/28/20 17:15 POD 1 DOING WELL. NO CALF PAIN. NO SOB OR CP Exam Extrem: Other: VSS AFEBRILE DRESSING DRY NV INTACT NEG HOMANS SIGN Objective Data Vital Signs Vital Signs: Vital Signs - 24 hr 10/27/20 17:30 10/27/20 17:56 10/27/20 18:23 Temperature 36.3 C L 36.0 C L Pulse Rate 79 72 Respiratory Rate 16 16 18 Blood Pressure 132/75 134/63 Pulse Oximetry 96 96 95 10/27/20 21:54 10/27/20 22:26 10/28/20 02:01 Temperature 36.0 C L 36.1 C L Pulse Rate 85 85 90 Respiratory Rate 18 20 Blood Pressure 125/70 109/58 L Pulse Oximetry 96 98 10/28/20 06:01 10/28/20 08:45 10/28/20 10:26 Temperature 36.3 C L 36.1 C L Pulse Rate 60 93 77 Respiratory Rate 20 18 Blood Pressure 125/65 133/61 Pulse Oximetry 98 95 10/28/20 14:17 Temperature 36.1 C L Pulse Rate 78 Respiratory Rate 18 Blood Pressure 122/57 L Pulse Oximetry 97 Intake/Output Intake/Output: Intake & Output 10/25/20 10/26/20 10/27/20 10/28/20 23:59 23:59 23:59 23:59 Intake Total 800 1030 Output Total 500 Balance 800 530 Meds/Results Medications: Active Medications Generic Name Dose Route Start Last Admin Trade Name Shanq PRN Reason Stop Dose Admin Acetaminophen 650 mg 10/27/20 16:41 Acetaminophen 325 Mg Tablet PO Q6H PRN Mild Pain (1-3) or Fever Aspirin 325 mg 10/27/20 21:00 10/28/20 08:45 Aspirin 325 Mg Enteric Tablet PO 325 mg Q12HR SYED Administration Atorvastatin Calcium 40 mg 10/28/20 09:00 10/28/20 08:46 Atorvastatin 40 Mg Tablet PO 40 mg DAILY SYED Administration Bupropion HCl 200 mg 10/27/20 17:00 10/28/20 08:46 Bupropion Hcl 100 Mg Tablet PO 200 mg BID SYED Administration Buspirone HCl 30 mg 10/27/20 17:00 10/28/20 08:46 Buspirone Hcl 10 Mg Tablet PO 30 mg BID SYED Administration Carvedilol 6.25 mg 10/27/20 21:00 10/28/20 08:45 Carvedilol 6.25 Mg Tablet PO 6.25 mg Q12HR SYED Administration Chlorhexidine Gluconate 1 applic 10/27/20 16:41 Chlorhexidine Gluconate 4% Marlene 120 Ml Btl TOPICAL ONCE SYED Clonidine HCl 0 mg 10/27/20 16:41 Clonidine Hcl 0.1 Mg Tablet BY MOUTH .COMPLEX SYED Diazepam 5 mg 10/27/20 16:41 10/28/20 06:48 Diazepam (*Crx) 5 Mg Tablet PO 5 mg Q6H PRN Administration Anxiety/Muscle Spasm Divalproex Sodium 250 mg 10/28/20 09:00 10/28/20 08:46 Divalproex Sodium Er 250 Mg Tab.24h PO 250 mg DAILY SYED Administration Docusate Sodium 100 mg 10/27/20 17:00 10/28/20 08:46 Docusate Sodium 100 Mg Capsule PO 100 mg BID [facility] Administration Finasteride 5 mg 10/28/20 09:00 10/28/20 08:46 Finasteride 5 Mg Tablet PO 5 mg DAILY [facility] Administration Ketorolac Tromethamine 15 mg 10/27/20 18:00 10/28/20 12:40 Ketorolac 15 Mg/Ml Vial (*Bkc) IV PUSH 10/28/20 18:01 15 mg Q6HR SYED Administration Levothyroxine Sodium 112 mcg 10/28/20 06:30 10/28/20 06:17 Levothyroxine Sodium 112 Mcg Tablet PO 112 mcg DAILY@0630 [facility] Administration Levothyroxine Sodium 25 mcg 10/28/20 06:30 10/28/20 06:17 Levothyroxine Sodium 25 Mcg Tablet PO 25 mcg DAILY@0630 [facility] Administration Magnesium Hydroxide 30 ml 10/27/20 16:41 Magnesium Hydroxide Susp 30 Ml Udc PO BID PRN Constipation Morphine Sulfate 3 mg 10/27/20 16:41 10/28/20 08:54 Morphine Sulfate (*Crx) 4 Mg/Ml Inj IV PUSH 3 mg Q3H PRN Administration Pain Rated 7-10 Naloxone HCl 0.1 mg 10/27/20 16:41 Naloxone Hcl 0.4 Mg/Ml Vial IV PUSH Q2M PRN Opiate Reversal Naloxone HCl 0.1 mg 10/27/20 16:41 Naloxone Hcl 0.4 Mg/Ml Vial IV PUSH Q2M PRN Opiate Reversal Ondansetron HCl 4 mg 10/27/20 16:41 10/27/20 19:59 Ondansetron Inj 4 Mg/2 Ml Vial IV PUSH 4 mg Q4H PRN Administration Nausea And Vomiting Oxycodone HCl 5 mg 08
--- NOTE | 2020-10-28 17:16 | PM.DS ---
DS: Admitting Diagnosis Admitting Diagnosis RIGHT HIP REPLACEMENT DS: Discharge Diagnosis Discharge Diagnosis (1) History of hip replacement: Code(s): Z96.649 - Presence of unspecified artificial hip joint Status: Acute DS: Summary Hospital Course Hospital Course: PATIENT WAS ADMITTED DUE TO PAIN CONTROL AND INABILITY TO AMBULATE COMFORTABLY. HE DID WELL ON POD 1. HE HAD A GOOD DIET. HIS PAIN WAS WELL CONTROLLED. HE PASSED PT WITH NO PROBLEMS. HE WOULD BE DISCHARGED TO HOME WITH HOME NURSING AND PT. HE WOULD HAVE ECASA FOR DVT PROPHYLAXIS. HE WOULD F/U IN 3 WEEKS. Time spent discussing smoking cessation with patient: more than 10 minutes Status at Discharge Functional status at discharge: uses cane/walker Time Spent with Patient Time attestation: Total time spent providing and/or coordinating discharge services: Time spent: Less than 30 minutes DS: Data Data Completed and Pending Labs on day of discharge: Labs from last 24 hours 10/28/10/28/20 10/27/20 05:33 05:33 17:45 WBC 9.0 RBC 3.14 L Hgb 10.8 L 12.3 L Hct 32.3 L 36.2 L MCV 102.9 H MCH 34.4 H MCHC 33.4 RDW 13.0 Plt Count 171 MPV 10.7 H Immature Gran % (Auto) 0.6 H Neut % (Auto) 76.3 H Lymph % (Auto) 10.1 L [place] % (Auto) 12.4 H Eos % (Auto) 0.4 Baso % (Auto) 0.2 Lymph # (Auto) 0.91 [place] # (Auto) 1.1 H Eos # (Auto) 0.0 Baso # (Auto) 0.0 Abs Immat Gran (auto) 0.05 H Absolute Neuts (auto) 6.8 H Absolute Nucleated RBC 0.0 Nucleated RBC % 0.0 Sodium 133 L Potassium 4.1 Chloride 104 Carbon Dioxide 25 Anion Gap 4 L BUN 17 Creatinine 1.10 Estim Creat Clear Calc 65 Estimated GFR > 60 Glucose 116 H Calcium 8.5 Discharge Plan Discharge Patient Disposition: Home Health Service Discharge Instructions: Per Care Coordination, patient to discharge with [facility] ) for PT/OT and residential services. FOLLOW WEIGHT BEARING INSTRUCTIONS PER PT. MAY SHOWER WITH DRESSING. HOME NURSE WILL CHANGE YOUR DRESSING IN 1 WEEK. HOME PHYSICAL THERAPY WILL ASSIST YOU WITH YOUR REHAB. TAKE 2 BABY ASPIRIN A DAY X 3 WEEKS FOR BLOOD CLOT PREVENTION. YOU MAY SLEEP WITH A PILLOW BETWEEN YOUR LEGS FOR COMFORT. YOU WILL HAVE PAIN MEDICATION PRESCRIBED TO YOU THAT SHOULD BE PICKED UP AT YOUR PHARMACY Patient Instructions: Antibiotic Form, Pain Management (DC) Stand Alone Forms: General Discharge Information, General Discharge Instructions Follow-up/Referrals: Fabian Long MD [Physician] - 3 Weeks Discharge Medications: New oxycodone-acetaminophen [Percocet] 7.5-325 mg tablet 1 tablet PO Q4H PRN (Reason: pain) Qty: 60 RF: 0 celecoxib [Celebrex] 200 mg capsule 200 mg PO BID Qty: 30 RF: 0 Continued buspirone 30 mg tablet 30 mg PO BID RF: 0 atorvastatin 40 mg tablet 40 mg PO DAILY RF: 0 omeprazole 40 mg capsule,delayed release(DR/EC) 20 mg PO BID RF: 0 levothyroxine 137 mcg capsule 137 mcg PO DAILY RF: 0 bupropion HCl 100 mg tablet 200 mg PO BID RF: 0 carvedilol 6.25 mg tablet 6.25 mg PO Q12H Qty: 60 RF: 5 finasteride 5 mg tablet 5 mg PO DAILY RF: 0 sertraline 50 mg tablet 50 mg PO DAILY RF: 0 chlorhexidine gluconate [Hibiclens] 4 % liquid 1 applic topical ONCE Qty: 237 RF: 0 divalproex 250 mg tablet extended release 24 hr 250 mg PO DAILY RF: 0 clonidine HCl 0.1 mg Tablet See Rx Instructions .ROUTE .COMPLEX RF: 0 tamsulosin 0.4 mg capsule 0.4 mg PO QAM RF: 0
== END 2020-10-28 17:39 | disposition home health service (06) ==
LOC: ANHSURGERY 11:52 → ANH2MED 17:28
PROVIDERS: PCP Family Medicine; Visit Provider Orthopaedic Surgery
PROC: (CPT 27130; principal; 2020-10-27 07:30)
DX: M16.11 Unilateral primary osteoarthritis, right hip (principal); I10 Essential (primary) hypertension; E78.5 Hyperlipidemia, unspecified; E03.9 Hypothyroidism, unspecified; K21.9 Gastro-esophageal reflux disease without esophagitis; G47.30 Sleep apnea, unspecified; I25.10 Atherosclerotic heart disease of native coronary artery without angina pectoris; Z95.1 Presence of aortocoronary bypass graft; E66.9 Obesity, unspecified; Z68.34 Body mass index [BMI] 34.0-34.9, adult; Z88.0 Allergy status to penicillin; Z88.2 Allergy status to sulfonamides
CPT/HCPCS: 27130; 36415; 73501; 80048; 80307; 81003; 82040; 83036; 85014; 85018; 85025; 85610; 85730; 86850; 86900; 86901; 87081; 97110; 97116; 97161; 97165; 97530; A9270; C1776; J0171; J0690; J1100; J1170; J1885; J2270; J2370; J2405; J2704; J2710; J2795; J3010; J3360; J7120

== ENCOUNTER 2022-08-29 10:02 | Outpatient (CLI) | payer MEDICARE, SELFPAY ==
--- NOTE | 2022-08-29 10:30 | ECHO_ITS ---
Patient Info Name: Scott Dejesus Age: 72 years : 1950 Gender: Male Ht: 70 in Wt: 210 lbs BSA: 2.19 m2 HR: 70 bpm BP: 134 / 86 mmHg Heart Rhythm: Sinus Rhythm Technical Quality: Fair Exam Date: 08/29/2022 10:39 AM Exam Location: [facility] Patient Status: Outpatient Admit Date: 08/29/2022 Staff Ordering Physician: Jose Riley DO Insurance Sales Agent: Chitra Jensen RDCS Attending Provider: Jose Riley DO Referring Physician: Osvaldo MICHAEL; Exam Type: CA echo doppler color flow Study Info Indications R06.00 - Dyspnea, unspecified Complete two-dimensional, color flow and Doppler transthoracic echocardiogram is performed. Summary 1. Complete two-dimensional, color flow and Doppler transthoracic echocardiogram is performed. 2. Left ventricular chamber dimension is normal. 3. Left ventricular systolic function is normal, estimated at 60-65%. 4. The left ventricular diastolic function is grade I diastolic dysfunction. 5. Global longitudinal strain is abnormal at -15.4%. 6. There is mild aortic valve sclerosis. 7. No pulmonary hypertension, estimated pulmonary arterial systolic pressure is 20 mmHg. Left Ventricle Tissue doppler E/e' is not performed. Global longitudinal strain is abnormal at -15.4%. Left ventricular chamber dimension is normal. Left ventricular systolic function is normal, estimated at 60-65%. The left ventricular diastolic function is grade I diastolic dysfunction. Right Ventricle Right ventricular chamber dimension is normal. Right ventricular systolic function is normal. Left Atria Left atrial chamber dimension is normal. Right Atria Right atrial chamber dimension is normal. Aortic Valve The aortic valve is probable trileaflet. There is mild aortic valve sclerosis. There is no aortic valve stenosis. There is no aortic valve regurgitation. Pulmonic Valve There is no pulmonic regurgitation. Mitral Valve There is no mitral valve stenosis. There is no mitral valve regurgitation. Tricuspid Valve There is no tricuspid valve regurgitation. No pulmonary hypertension, estimated pulmonary arterial systolic pressure is 20 mmHg. Pericardium/Pleural There is no pericardial effusion. Inferior Vena Cava Normal inferior vena cava with >50% collapse upon inspiration consistent with normal right atrial pressure, 5 mmHg. Aorta The aortic root size at the sinus of Valsalva is normal. Left Ventricular Outflow Tract Name Value Normal LVOT 2D LVOT Diameter 2.0 cm LVOT Doppler LVOT Peak Gradient 7 mmHg LVOT Mean Gradient 4 mmHg LVOT VTI 31 cm LVOT VTI/AV VTI Ratio 0.8 LVOT Stroke Volume 96 ml LVOT CO 5.7 l/min LVOT CI 2.6 l/min/m2 Pulmonic Valve Name Value Normal RVOT Doppler RVOT Peak Gradient
== END 2022-08-29 10:03 | disposition home or self-care (01) ==
LOC: ANHCARD 10:03
PROVIDERS: PCP Family Medicine; Visit Provider Internal Medicine Cardiovascular Disease
DX: R06.00 Dyspnea, unspecified (principal); I35.8 Other nonrheumatic aortic valve disorders
CPT/HCPCS: 93306

== ENCOUNTER 2023-02-20 06:19 | Outpatient (CLI) | payer MEDICARE, SELFPAY ==
--- NOTE | 2023-03-08 19:56 | WPDSLEEPSTUD ---
Sleep Study Date of Study: 02/20/23 Ordering Provider: Stephanie Vazquez MD Interpreting Physician: Stephanie Vazquez MD Sleep Study Type: CPAP Titration Height: 1.78 m Weight: 95.254 kg Body Mass Index: 30.1 Neck Circumference (inches): 18.5 Dorris: 2 Reason for Sleep Study *?03/01/2019 Home Sleep Test? using [employer] Night One while he was in the hospital, AHI 40, lowest desaturation 81%, average oxygen saturation 93% heart rate 48-115 beats per minute.? He snored for 84% of the total sleep time.? He was recommended auto PAP 4 to 20 cm of water.? BMI was 32. He had severe ABDULLAHI, and did not respond to autoPAP. Sleep History Scott Dejesus is a 72-year-old male with long-standing insomnia. His medical comorbidities include hypertension, depression and GERD. He has seasonal allergies.He has a difficult time getting to sleep and staying asleep. He has chronic fatigue. In 2018 he had a home sleep test showing severe sleep apnea, he tried auto PAP which did not help him. He occasionally awakens from sleep feeling short of breath. He rarely awakens at night with heartburn, belching or coughing. He constantly snores, frequently snores loudly enough that others complain. He frequently has difficulty sleeping with a cold. He does not wake up gasping for breath at night. He rarely has breathing problems at night observed by others. He occasionally sweats excessively at night. he does not notice his heart pounding or beating irregularly at night. He does not fall asleep during the day, does not fall asleep involuntarily or while driving. He rarely has loss of muscle tone with strong emotion. He does not have daytime difficulties due to excessive sleepiness. He does not feel paralyzed on waking or falling asleep. He does not have vivid dreamlike scenes upon awakening or falling asleep. He does not feel afraid to go to sleep. He rarely has nightmares. He occasionally has racing thoughts. He constantly feels sad, depressed and anxious. He frequently has muscular tension. He occasionally notices parts of his body jerk. He occasionally kicks at night. He occasionally has crawling and aching feelings in his legs. He does not have any kind of leg pain at night. He does not have morning jaw pain. He does not grind his teeth during sleep. He is not bothered by pain during the day. He is not awakened by pain at night. He rarely wakes up feeling stiff in the morning. He does not wake up with sore or achy muscles. He occasionally wakes up with pain in the neck and spine. He has fatigue, memory problems, concentration difficulties and insomnia. His normal bedtime is 10:30 p.m. taking quite a while to fall asleep. He typically wakes up 6 times during the night and it may take him a short while in sometimes longer to return to sleep. While awake at night he watches television. When he does return to sleep he wakes the morning by 7:30 a.m.. He estimates getting 2 hours of sleep overnight. He keeps the same schedule on weekends. He does not take naps in the afternoon or evening. He does not feel refreshed after short nap. He is drowsy in the morning after waking. He feels better in the afternoon compared to other times of day. [facility] Past Medical History Medical History ADD (attention deficit disorder) Anemia Arthritis AVM (arteriovenous malformation) of stomach, acquired Benign essential HTN CAD (coronary artery disease) Cellulitis of right thigh Degenerative joint disease of right hip Disorder of thyroid Eczema GERD (gastroesophageal reflux disease) Hearing loss Hoarseness Hyperlipidemia Hypertension Hypothyroidism Hypothyroidism (acquired) Neoplasm of uncertain behavior of skin Scalp injury Shortness of breath Skin graft failure Skin lesion of lower extremity Sleep apnea Urinary frequency Weight gain Surgical History Surgical History (Reviewed 03/08/23 @ 20:15 by Stephanie Woo
[2023-03-08 20:02] VITALS: BMI 30.1
== END 2023-02-21 07:36 | disposition home or self-care (01) ==
LOC: ANHCSM 06:19
PROVIDERS: PCP Family Medicine; Visit Provider Internal Medicine Critical Care Medicine
DX: G47.33 Obstructive sleep apnea (adult) (pediatric) (principal); G47.61 Periodic limb movement disorder
CPT/HCPCS: 95811

== ENCOUNTER 2023-04-11 00:27 | Day surgery (SDC) | payer MEDICARE, SELFPAY ==
[2023-03-22 14:22] VITALS: BMI 30.2
--- NOTE | 2023-04-09 12:46 | SUR.PREOP ---
Patient called regarding upcoming procedure. Pt updated on arrival date and time. All questions answered.
--- NOTE | 2023-04-10 14:09 | PM.HPGS ---
History of Present Illness History of Present Illness Consent: Risks, benefits, and alternatives have been discussed and questions answered. Patient agrees to proceed with procedure. 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 He is here now for follow-up of those conditions. his hemoglobin has been dropping gradually. Is currently 9.7 versus 12.1 a year ago. Review of Systems Review of Systems: All systems reviewed & are unremarkable except as noted in HPI and below PMFSH Past Medical History Medical History ADD (attention deficit disorder) Anemia Arthritis AVM (arteriovenous malformation) of stomach, acquired Benign essential HTN CAD (coronary artery disease) Cellulitis of right thigh Degenerative joint disease of right hip Disorder of thyroid Eczema GERD (gastroesophageal reflux disease) Hearing loss Hoarseness Hyperlipidemia Hypertension Hypothyroidism Hypothyroidism (acquired) Neoplasm of uncertain behavior of skin Scalp injury Shortness of breath Skin graft failure Skin lesion of lower extremity Sleep apnea Urinary frequency Weight gain Surgical History Surgical History S/P CABG x 3 Family History Family History Other Arthritis Social History Social History Social History: Smoking status: Never smoker Second hand tobacco smoke exposure: No Alcohol intake: current Drinks per week: 6 Alcohol use details: Occasionally Substance use: current Substance use type: marijuana Other substance usage details: smokes marijuana about 2 times weekly to get to sleep Lack of Transportation: No Lack of Food: Never True Current Housing: I Have Housing Concerned About Future Housing: No Difficulty Paying Gas/Electric Bills: No Difficulty Paying for Meds: No Currently Unemployed: YES Education: Decline to Answer Difficulty w/ Childcare or Family Care: No Living arrangements: alone Occupation/Education: retired Gender identity (if verbalized by the patient): Male Sexual Orientation (if Verbalized by the Patient): Straight or Heterosexual Spiritual care concerns: No Meds Home Medications and Allergies Home Medications Medication Instructions Recorded Confirmed Type bupropion HCl 300 mg 24 hr tablet, 300 mg PO QAM 06/21/22 04/11/23 History extended release (Wellbutrin XL) buspirone 30 mg tablet 30 mg PO DAILY 06/21/22 04/11/23 History carvedilol 6.25 mg tablet See Rx Instructions .Route 07/20/22 03/22/23 Rx .COMPLEX #180 tabs atorvastatin 40 mg tablet See Rx Instructions .Route 08/16/22 04/11/23 Rx .COMPLEX #100 tabs losartan 100 mg tablet See Rx Instructions .Route 08/22/22 04/11/23 Rx .COMPLEX #90 tabs finasteride 5 mg tablet See Rx Instructions .Route 12/19/22 04/11/23 Rx .COMPLEX #90 tabs tamsulosin 0.4 mg capsule See Rx Instructions .Route 12/24/22 04/11/23 Rx .COMPLEX #90 caps omeprazole 20 mg capsule,delayed See Rx Instructions .Route 01/26/23 04/11/23 Rx release .COMPLEX #180 caps levothyroxine 150 mcg tablet See Rx Instructions .Route 03/02/23 03/22/23 Rx .COMPLEX #90 tabs amlodipine 5 mg tablet See Rx Instructions .Route 03/16/23 04/11/23 Rx .COMPLEX #90 tabs ferrous sulfate 325 mg (65 mg 325 mg PO DAILY #90 tabs 04/10/23 Rx iron) tablet Allergies Allergy/AdvReac Type Severity Reaction Status Date / Time Penicillins Allergy Severe HIVES Verified 04/11/23 12:03 Sulfa (Sulfonamide Allergy Severe HIVES Verified 04/11/23 12:03 Antibiotics)
[2023-04-11 12:05] VITALS: BP 160/79; PULSE 72; RESP 18; TEMP 36.2; O2SAT 99; BMI 29.7
--- NOTE | 2023-04-11 12:06 | WPDANESEPPF ---
Anes - Initial Pre Proc Eval Procedure: Operation Date: 04/11/23 13:30 Proposed Procedures p Esophagogastroduodenoscopy - Maxx Ramirez MD Date/Time: 04/11/23 12:06 Surgeon: Maxx Ramirez MD Pre Op Diagnosis: Garcia's esophagus,Anemia Patient Data Age: 72 Gender: M Height: 1.78 m Weight: 95.5 kg Allergies Allergy/AdvReac Type Severity Reaction Status Date / Time Penicillins Allergy Severe HIVES Verified 04/11/23 12:03 Sulfa (Sulfonamide Allergy Severe HIVES Verified 04/11/23 12:03 Antibiotics) Home Medications Medication Instructions Recorded Confirmed Type bupropion HCl 300 mg 24 hr tablet, 300 mg PO QAM 06/21/22 04/11/23 History extended release (Wellbutrin XL) buspirone 30 mg tablet 30 mg PO DAILY 06/21/22 04/11/23 History carvedilol 6.25 mg tablet See Rx Instructions .Route 07/20/22 03/22/23 Rx .COMPLEX #180 tabs atorvastatin 40 mg tablet See Rx Instructions .Route 08/16/22 04/11/23 Rx .COMPLEX #100 tabs losartan 100 mg tablet See Rx Instructions .Route 08/22/22 04/11/23 Rx .COMPLEX #90 tabs finasteride 5 mg tablet See Rx Instructions .Route 12/19/22 04/11/23 Rx .COMPLEX #90 tabs tamsulosin 0.4 mg capsule See Rx Instructions .Route 12/24/22 04/11/23 Rx .COMPLEX #90 caps omeprazole 20 mg capsule,delayed See Rx Instructions .Route 01/26/23 04/11/23 Rx release .COMPLEX #180 caps levothyroxine 150 mcg tablet See Rx Instructions .Route 03/02/23 03/22/23 Rx .COMPLEX #90 tabs amlodipine 5 mg tablet See Rx Instructions .Route 03/16/23 04/11/23 Rx .COMPLEX #90 tabs ferrous sulfate 325 mg (65 mg 325 mg PO DAILY #90 tabs 04/10/23 Rx iron) tablet Patient hx anesthesia problems: none Family hx anesthesia problems: none Results Review: All pre-operative results and documents have been reviewed as part of the pre-operative evaluation. [facility] Past Medical History Medical History (Updated 03/19/23 @ 11:39 by Adrienne Kaiser PA-C) ADD (attention deficit disorder) Anemia Arthritis AVM (arteriovenous malformation) of stomach, acquired Benign essential HTN CAD (coronary artery disease) Cellulitis of right thigh Degenerative joint disease of right hip Disorder of thyroid Eczema GERD (gastroesophageal reflux disease) Hearing loss Hoarseness Hyperlipidemia Hypertension Hypothyroidism Hypothyroidism (acquired) Neoplasm of uncertain behavior of skin Scalp injury Shortness of breath Skin graft failure Skin lesion of lower extremity Sleep apnea Urinary frequency Weight gain Surgical History Surgical History S/P CABG x 3 Family History Family History Other Arthritis Social History Social History Social History: Smoking status: Never smoker Second hand tobacco smoke exposure: No Alcohol intake: current Drinks per week: 6 Alcohol use details: Occasionally Substance use: current Substance use type: marijuana Other substance usage details: smokes marijuana about 2 times weekly to get to sleep Lack of Transportation: No Lack of Food: Never True Current Housing: I Have Housing Concerned About Future Housing: No Difficulty Paying Gas/Electric Bills: No Difficulty Paying for Meds: No Currently Unemployed: YES Education: Decline to Answer Difficulty w/ Childcare or Family Care: No Living arrangements: alone Occupation/Education: retired Gender identity (if verbalized by the patient): Male Sexual Orientation (if Verbalized by the Patient): Straight or Heterosexual Spiritual care concerns: No Anes - Eval Final PreProcedure Day of Procedure 04/11/23 12:06 Patient weight: obese Heart: regular rate and rhythm Lungs: clear to auscultation Airway: Mallampati scale class II Neurological: alert and oriented Last
[2023-04-11] MEDS: LACTATED RINGERS 1,000 ML 150 ML IV CONT (12:09)
[2023-04-11 13:27] VITALS: BP 98/64; PULSE 87; RESP 29; O2SAT 95
[2023-04-11 13:37] VITALS: BP 128/78; PULSE 72; RESP 26; O2SAT 94
[2023-04-11 13:47] VITALS: BP 137/69; PULSE 64; RESP 24; O2SAT 96
== END 2023-04-11 13:59 | disposition home or self-care (01) ==
PROVIDERS: PCP Family Medicine; Visit Provider Internal Medicine Gastroenterology
PROC: 0DJ08ZZ Inspection of Upper Intestinal Tract, Via Natural or Artificial Opening Endoscopic (ICD-10-PCS; CPT 43235; principal; 2023-04-11 13:30)
DX: K22.70 Barrett's esophagus without dysplasia (principal); K31.819 Angiodysplasia of stomach and duodenum without bleeding; K21.9 Gastro-esophageal reflux disease without esophagitis; D64.9 Anemia, unspecified; I10 Essential (primary) hypertension; E78.5 Hyperlipidemia, unspecified; E03.9 Hypothyroidism, unspecified; F98.8 Other specified behavioral and emotional disorders with onset usually occurring in childhood and adolescence; G47.30 Sleep apnea, unspecified; R35.0 Frequency of micturition; F12.90 Cannabis use, unspecified, uncomplicated; E66.9 Obesity, unspecified; Z68.29 Body mass index [BMI] 29.0-29.9, adult; D49.2 Neoplasm of unspecified behavior of bone, soft tissue, and skin; Z95.1 Presence of aortocoronary bypass graft; Z86.79 Personal history of other diseases of the circulatory system
CPT/HCPCS: 43239; 43270; 88305; J2704; J7120

== ENCOUNTER 2023-06-21 08:26 | Outpatient (CLI) | payer MEDICARE, SELFPAY ==
--- NOTE | ~2023-06-21 | NM_ITS ---
EXAMINATION: NM lashae stress w perfusion DATE: 06/21/2023 11:29 INDICATION: Chest pain. TECHNIQUE: Rest images were obtained following intravenous administration of 10.2 mCi Tc99m tetrofosm in (Myoview). The patient was infused intravenously with Lexiscan (regadenoson). Then, 32.7 mCi Tc99m tetrofosmin (Myoview) was administered intravenously, and supine and prone stress images were obtain ed. Data was reconstructed into short axis and horizontal and vertical long axis SPECT images. Gated SPECT images were also obtained. COMPARISON: None. FINDINGS: There is no definite reversible or fixed perfusion abnormality to suggest ischemia or infar ction. There is no segmental wall motion abnormality. Left ventricular ejection fraction measures 6 4%. IMPRESSION: 1. No definite ischemia or infarct. 2. Normal left ventricular ejection fraction measuring 64%. Reviewed, dictated and finalized at location A.
--- NOTE | 2023-06-21 08:34 | EST_ITS ---
Patient Info Name: Scott Dejesus Age: 73 years : 1950 Gender: Male Ht: 65 in Wt: 205 lbs BSA: 2.10 m2 HR: 64 bpm BP: 134 / 77 mmHg Heart Rhythm: Sinus Rhythm Exam Date: 06/21/2023 9:36 AM Exam Location: Echo Lab Patient Status: Outpatient Admit Date: 06/21/2023 Staff Ordering Physician: Jose Riley DO Attending Provider: Jose Riley DO Exercise Technologist: Alva Umana CT Exercise Physician: Jose Riley DO Exam Type: CA stress lashae w NM Study Info Indications R07.89 - Other chest pain A regadenoson stress test was performed. Summary 1. 1. Negative lexiscan stress test for ischemic ST changes by ECG criteria. 2. 2. Stable hemodynamics throughout the test. 3. 3. Nuclear scan to follow and will be reported separately. Please correlate with it. 4. 4. Patient informed of the above results. Protocol: Lexiscan Stress ECG Details Stage: REST Duration (min): 0 min : 56 sec HR (bpm): 64 SBP (mmHg): 134 DBP (mmHg): 77 Stage: REST Duration (min): 7 min : 57 sec HR (bpm): 65 SBP (mmHg): 134 DBP (mmHg): 77 Stage: STAGE 1 Duration (min): 0 min : 59 sec HR (bpm): 99 SBP (mmHg): 142 DBP (mmHg): 77 Stage: RECOVERY Duration (min): 1 min : 0 sec HR (bpm): 101 SBP (mmHg): 142 DBP (mmHg): 77 Stage: RECOVERY Duration (min): 2 min : 0 sec HR (bpm): 94 SBP (mmHg): 142 DBP (mmHg): 77 Stage: RECOVERY Duration (min): 3 min : 0 sec HR (bpm): 91 SBP (mmHg): 133 DBP (mmHg): 73 Stage: RECOVERY Duration (min): 3 min : 2 sec HR (bpm): 90 SBP (mmHg): 133 DBP (mmHg): 73 Rest HR: 65 bpm Peak HR: 105 bpm Rest Sys BP: 134 mmHg Peak Sys BP: 142 mmHg Max Pred HR: 147 bpm % Max Pred HR: 71 % Target HR: 125 bpm Max RPP: 14,910 bpm*mmHg Termination Reason: Completed protocol Cardiac Symptoms: Shortness of breath Total Time: 1 min : 0 sec Rest Hernandez BP: 77 mmHg Peak Hernandez BP: 77 mmHg Total Dose: 0.4 mg Resting ECG Sinus rhythm, cannot r/o septal infarct, age indeterminate. Stress ECG No ST changes. Arrhythmias None. Report Signatures
== END 2023-06-21 08:27 | disposition home or self-care (01) ==
PROVIDERS: PCP Family Medicine; Visit Provider Internal Medicine Cardiovascular Disease
DX: R07.89 Other chest pain (principal)
CPT/HCPCS: 78452; 93017; A9502; J2785

== ENCOUNTER 2023-11-28 11:37 | Emergency (ER) | payer MEDICARE, SELFPAY ==
--- NOTE | ~2023-11-28 | XR_ITS ---
EXAMINATION: XR chest 1V portable DATE: 11/28/2023 12:39 INDICATION: Weakness. TECHNIQUE: A single frontal view of the chest was obtained. COMPARISON: None. FINDINGS: There is mild atelectasis in left lower lung zone. No pleural effusion or pneumothorax. The heart size is normal. Median sternotomy wires and mediastinal surgical clips are seen, likely from p rior coronary artery bypass grafting. There are old healed left rib fractures. IMPRESSION: 1. Mild atelectasis in left lower lung zone. Reviewed, dictated and finalized at location A.
--- NOTE | ~2023-11-28 | CT_ITS ---
EXAMINATION: CT brain wo con DATE: 11/28/2023 12:21 INDICATION: Weakness. TECHNIQUE: Computed tomography (CT) of the head was performed without intravenous contrast. The mA wa s adjusted according to patient size. Iterative reconstruction technique was employed. The dose-lengt h product was 681.00 mGy-cm. COMPARISON: None FINDINGS: There is no intracranial hemorrhage, acute infarction, or abnormal intracranial mass lesion . The ventricles are normal in size. There is mild mucosal thickening in the paranasal sinuses. The m astoid air cells are normal. There are likely changes of left ocular lens replacement surgery. There is a skin defect in the scalp on the left. IMPRESSION: 1. Normal brain. Reviewed, dictated and finalized at location A. IMPRESSION: 1. Normal brain.
[2023-11-28 11:43] VITALS: BP 131/103; PULSE 63; RESP 16; TEMP 36.2; O2SAT 97
--- NOTE | 2023-11-28 12:02 | ED.GENADULT ---
HPI - General Adult General Chief complaint: Weakness Stated complaint: slurred speach, last known well 2 months Time Seen by Provider: 11/28/23 12:00 Source: patient History of Present Illness HPI narrative: Patient wheeled in from his family physician office because of dizziness and balance disorder for the last 2 months Patient is telling me that for the last 2 months been having dizziness when he rolled over in bed or with certain position, everything spins, denies associated nausea, vomiting, chest pain, shortness of breath, headache or focal neuro deficit. Patient report the above symptoms is intermittent and currently is asymptomatic. Patient is telling me that last time was seen by his family physician 2 months ago and had reported to his family physician. Today was seen by his family physician for the same issue and was told to go to the emergency room immediately. Patient lives alone, history of hypertension, hyper lip, drinking alcohol weekly, uses marijuana to help him to sleep, does not smoke cigarettes. Related Data Home Medications Medication Instructions Recorded Confirmed clonazepam 0.5 mg tablet 0.5 mg PO BID 06/04/23 09/19/23 mirabegron 25 mg tablet,extended 25 mg PO DAILY 07/04/23 09/19/23 release 24 hr (Myrbetriq) amphetamine 20 mg tablet, 20 mg PO QAM 09/19/23 09/19/23 immediate and extended release 24 hour bupropion HCl 300 mg 24 hr tablet, 300 mg PO QAM 09/19/23 09/19/23 extended release escitalopram oxalate 5 mg tablet 5 mg PO DAILY 10/29/23 Allergies Allergy/AdvReac Type Severity Reaction Status Date / Time Penicillins Allergy Severe HIVES Verified 11/28/23 10:53 Sulfa (Sulfonamide Allergy Severe HIVES Verified 11/28/23 10:53 Antibiotics) Review of Systems Review of Systems: All systems reviewed & are unremarkable except as noted in HPI and below PMFSH Past Medical History Medical History ADD (attention deficit disorder) Anemia Arthritis AVM (arteriovenous malformation) of stomach, acquired Benign essential HTN CAD (coronary artery disease) Cellulitis of right thigh Degenerative joint disease of right hip Disorder of thyroid Eczema GERD (gastroesophageal reflux disease) Hearing loss Hoarseness Hyperlipidemia Hypertension Hypothyroidism Hypothyroidism (acquired) Neoplasm of uncertain behavior of skin Scalp injury Shortness of breath Skin graft failure Skin lesion of lower extremity Sleep apnea Urinary frequency Weight gain Surgical History Surgical History S/P CABG x 3 Family History Family History Other Arthritis Social History Social History Social History: Smoking status: Never smoker Second hand tobacco smoke exposure: No Alcohol intake: current Drinks per week: 6 Alcohol use details: Occasionally Substance use: current Substance use type: marijuana Other substance usage details: smokes marijuana about 2 times weekly to get to sleep Lack of Transportation: No Lack of Food: Never True Current Housing: I Have Housing Concerned About Future Housing: No Difficulty Paying Gas/Electric Bills: No Difficulty Paying for Meds: No Currently Unemployed: YES Education: Decline to Answer Difficulty w/ Childcare or Family Care: No Living arrangements: alone Occupation/Education: retired Gender identity (if verbalized by the patient): Male Sexual Orientation (if Verbalized by the Patient): Straight or Heterosexual Spiritual care concerns: No Exam Narrative: General appearance: Well-developed, well-nourished Skin: Normal color Head: Normocephalic, nontraumatic Eyes: Clear conjunctiva ENT: Oropharynx normal, ears normal, nose normal Neck: Supple, nontender Chest and respiratory: Airway ni
[2023-11-28 12:03] VITALS: O2SAT 97
--- NOTE | 2023-11-28 12:03 | ECG_ITS ---
Test Date: 2023-11-28 12:06:45 Measurements Intervals [place] Rate: 55 P: 42 WA: 210 QRS: 8 QRSD: 108 T: 43 QT: 402 QTc: 386 Interpretive Statements SINUS BRADYCARDIA WITH FIRST DEGREE AV BLOCK LOW QRS VOLTAGE IN PRECORDIAL LEADS CANNOT R/O SEPTAL INFARCT, AGE INDETERMINATE BORDERLINE ECG No previous ECG available for comparison Electronically Signed On 11-28-2023 12:26:22 CDT by Jose Riley D.O.
[2023-11-28 12:19] LABS: Eosinophils Absolute Auto 0.3 K/mm3 (0-0.3); Eosinophils Percent Auto 7.4 % (0-4.4); Hematocrit 42.5 % (42.0-52.0); Hemoglobin 14.3 g/dL (14.0-18.0); Immature Granulocyte Absolute 0.01 K/mm3 (0.00-0.031); Immature Granulocyte Percent A 0.2 % (0-0.5); Lymphocytes Percent Auto 18.1 % (18.3-44.2); Mean Corpuscular HGB Conc 33.6 g/dl (32-36); Mean Corpuscular Hemoglobin 33.6 pg (26-34); Monocytes Absolute Auto 0.4 K/mm3 (0.1-0.6); Monocytes Percent Auto 9.3 % (2.6-8.5); Neutrophils Absolute Auto 2.9 K/mm3 (1.3-6.7); Platelet Count Result 146 k/mm3 (150-375); Red Blood Count 4.25 M/mm3 (4.6-6.20); Red Cell Distribution Width 13.2 % (11.5-14.5); White Blood Count 4.4 K/mm3 (4.5-10.0)
[2023-11-28 12:31] LABS: Alanine Aminotransferase 20 U/L (6-50); Albumin Level 3.9 g/dL (3.5-5.1); Alkaline Phosphatase 78 U/L (38-126); Anion Gap 9 mmol/L (4-12); Aspartate Amino Transferase 25 U/L (17-59); Bilirubin,Total 0.5 mg/dL (0.2-1.3); Blood Urea Nitrogen 12 mg/dL (9-20); Carbon Dioxide 25 mmol/L (22-30); Chloride 102 mmol/L (98-107); Estimated CRCL calculation 62 ml/min; Estimated Glomerular Filt Rate > 60; Glucose 98 mg/dL (65-110); Potassium 4.2 mmol/L (3.4-5.0); Sodium 136 mmol/L (137-145)
[2023-11-28 12:43] LABS: Troponin I < 0.012 ng/mL (0.000-0.034)
[2023-11-28 12:45] VITALS: BP 155/81; PULSE 52; RESP 20; O2SAT 97
[2023-11-28 12:54] LABS: Appearance Urine Clear (Clear); Color Urine Yellow (Yellow); pH Urine 6.5 (5.0-9.0)
[2023-11-28 12:55] LABS: Add Urine Microscopic? YES; Bilirubin Urine Negative (Negative); Blood Urine Negative (Negative); Glucose Urine UA Negative (Negative); Ketones Urine Negative (Negative); Leukocyte Esterase Ur Trace LEU/UL (Negative); Nitrate Urine Negative (Negative); Protein Urine Negative (Negative); Urobilinogen Urine 0.2 mg/dL (<2.0)
[2023-11-28 13:12] LABS: Bacteria Urine None seen /hpf; RBC Urine None seen /hpf (0-2); Squamous Epithelial Cell Urine Few /hpf (Few)
[2023-11-28 13:43] VITALS: BP 145/73; PULSE 66; RESP 20; O2SAT 97
[2023-11-28 13:44] VITALS: TEMP 36.4
== END 2023-11-28 13:45 | disposition home or self-care (01) ==
PROVIDERS: Emergency Provider Emergency Medicine; PCP Family Medicine
DX: R42 Dizziness and giddiness (principal); I10 Essential (primary) hypertension; I25.10 Atherosclerotic heart disease of native coronary artery without angina pectoris; K21.9 Gastro-esophageal reflux disease without esophagitis; E78.5 Hyperlipidemia, unspecified; E03.9 Hypothyroidism, unspecified; F98.8 Other specified behavioral and emotional disorders with onset usually occurring in childhood and adolescence
CPT/HCPCS: 36415; 70450; 71045; 80053; 81001; 84484; 85025; 93005; 99284

== ENCOUNTER 2025-01-09 16:35 | Outpatient (CLI) | payer MEDICARE, SELFPAY ==
--- OUTSIDE RECORDS SUMMARY | 2021-09-07 10:53 | XMS_ITS | Encounter Summary ---
Author Organization [facility] Address [address] [place] [address] Care Team Providers Care Ammonia Refrigeration Worker Name Role Phone Savana Choi MD Primary Care Provider Maribel hayden Encounter Details Date Type Department Care Team (Latest Contact Info) Description 09/07/2021 10:53 AM CDT Hospital Encounter [address] [place] [address] [place] [address] [place] [address] [employer] Social History Tobacco Use Types Packs/Day Years Used Date Smoking Tobacco: Never Smokeless Tobacco: Never Alcohol Use Standard Drinks/Week Comments No 0 (1 standard drink = 0.6 oz pur e alcohol) Quit 10/14/1979 AUDIT-C Answer Date Recorded Q1: How often do you have a drink containing alc ohol? 2-4 times a month 10/27/2021 Q2: How many drinks containi ng alcohol do you have on a typical day when you are drinking? 1 or 2 10/27/2021 Q3: How often do you have si x or more drinks on one occasion? 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 No / Unsure 09/13/2022 10:57 AM CDT documented as of this encounter Functional Status * Functional and Cognitive Status Question Answer Date of Assessment Author Is person deaf or have agata us hearing difficulty? No 10/27/2021 4:18 PM CDT Kyleigh Tristan R N Is person blind or have seri ous difficulty seeing? No 10/27/2021 4:18 PM CDT Kyleigh Tristan, R N Does person have serious dif ficulty walking/climbing stairs? No 10/27/2021 4:18 PM CDT Wilfredo Tristan RN Does person have difficulty dressing/bathing? No 10/27/2021 4:18 PM CDT Kyleigh Tristan, R N Does person have difficulty doing errands alone? No 10/27/2021 4:18 PM CDT Kyleigh Tristan, R N Does person have difficulty concentrating/remembering/making decisions? No 10/27/2021 4:18 PM CDT Kyleigh Tristan, R N * Question Answer Date of Assessment Author Q1: How often do you have a drink containing alcohol? 2-4 times a month 10/27/2021 9:19 AM Yadiel Devi RN Q2: How many drinks containing alcohol do you have on a typical day when you are drinking? 1 or 2 10/27/2021 9:19 AM Yadiel Devi RN Q3: How often do you have six or more drinks on one occasion? Never 10/27/2021 9:19 AM Yadiel Devi RN * AUDIT-C Score Answer Date of Assessment Author 2 10/27/2021 9:19 AM Emily Devi RN * Is person deaf or have serious hearing difficulty? Answer Date of Assessment Author No 08/29/2021 10:05 AM QUET Sarah Monroe RN * Is person blind or have serious difficulty seeing? Answer Date of Assessment Author No 08/29/2021 10:05 AM QUET Sarah Monroe RN * Does person have serious difficulty walking/climbing stairs? Answer Date of Assessment Author No 08/29/2021 10:05 AM Sarah Vizcaino RN * Does person have difficulty dressing/bathing? Answer Date of Assessment Author No 08/29/2021 10:05 AM Sarah Vizcaino RN * Does person have difficulty doing errands alone? Answer Date of Assessment Author No 08/29/2021 10:05 AM Sarah Vizcaino RN documented as of this encounter Mental Status * Does person have difficulty concentrating/remembering/making decisions? Answer Entry Date Author No 08/29/2021 10:05 AM Sarah Vizcaino RN documented in this encounter Plan of Treatment Not on file documented as of this encounter Visit Diagnoses Not on filedocumented in this encounter Care Teams Ammonia Refrigeration Worker Relationship Specialty Start Date End Date Savana Choi MD [address] [facility] [address] [place] [address] PCP - General Family Medicine 08/24/21 documented as of this encounter
--- NOTE | ~2025-01-09 | XR_ITS ---
EXAMINATION: XR chest 2V, 01/09/2025 17:00 CDT HISTORY: R06.00 - Dyspnea, unspecified COMPARISON: No comparisons available. Technique: 2 views obtained. Findings: The lungs are clear, no effusion. No pneumothorax. Heart is normal size. Mediastinal and hilar contours are within normal limits. Poststernotomy Impression: No acute cardiopulmonary abnormality. Reviewed, dictated and finalized at location P. Impression: No acute cardiopulmonary abnormality.
--- NOTE | ~2025-01-09 | XR_ITS ---
EXAMINATION: XR knee LT 3V DATE: 01/09/2025 17:09 INDICATION: Left knee pain TECHNIQUE: Anteroposterior, oblique and crosstable lateral views of the left knee were obtained COMPARISON: None. FINDINGS: Alignment is normal. Nondisplaced oblique fracture extending across the proximal diaphysis of the left fibula. No other fractures identified. Mild joint space narrowing consistent with mild osteoarthritis the medial compartment of the left knee although severity of joint space narrowing can be underestimated on nonweightbearing imaging. No joint effusion/layering lipohemarthrosis. Atherosclerotic calcification along the popliteal artery. Soft tissues are unremarkable. IMPRESSION: 1. Nondisplaced extra articular fracture at the proximal diaphysis of the left fibula. Reviewed, dictated and finalized at location A.
--- OUTSIDE RECORDS SUMMARY | 2025-01-09 16:42 | XMS_ITS | Encounter Summary ---
Author Organization [facility] Address [address] [place] [address] Care Team Providers Care Barrel Charrer Name Role Phone Savana Choi MD Primary Care Provider Maribel hayden Encounter Details Date Type Department Care Team (Late st Contact Info) Description 09/08/2021 Telemedicine [facility] - Orthopedic Surgery [address] [place] [address], [address] [place] [address] Jorge Luis Myers LPN Social History Tobacco Use Types Packs/Day Years Used Date Smoking Tobacco: Never Smokeless Tobacco: Never Alcohol Use Standard Drinks/Week Comments No 0 (1 standard drink = 0.6 oz pur e alcohol) Quit 10/14/1979 AUDIT-C Answer Date Recorded Q1: How often do you have a drink containing alcohol? Never 08/22/2021 Q2: How many drinks containi ng alcohol do you have on a typical day when you are drinking? Patient does not drink Q3: How often do you have si x or more drinks on one occasion? 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 Answer Date of Assessment Author No 08/29/2021 10:05 AM Sarah Vizcaino RN * Is person blind or have serious difficulty seeing? Answer Date of Assessment Author No 08/29/2021 10:05 AM Sarah Vizcaino RN * Does person have serious difficulty [...] on filedocumented in this encounter Care Teams Barrel Charrer Relationship Specialty Start Date End Date Savana Choi MD [address] [facility] [address] [place] [address] PCP - General Family Medicine 08/24/21 documented as of this encounter
--- OUTSIDE RECORDS SUMMARY | 2025-01-09 16:42 | XMS_ITS | Encounter Summary ---
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 Answer Date of Assessment Author No 08/07/2021 10:00 PM Eda Renteria RN * Is person blind or have serious difficulty seeing? Answer Date of Assessment Author No 08/07/2021 10:00 PM Eda Renteria RN * Does person have serious difficulty walking/climbing stairs? Answer Date of Assessment Author No 08/07/2021 10:00 PM Eda Renteria RN * Does person have difficulty dressing/bathing? Answer Date of Assessment Author No 08/07/2021 10:00 PM Eda Renteria RN * Does person have difficulty doing errands alone? Answer Date of Assessment Author No 08/07/2021 10:00 PM Eda Renteria RN documented as of this encounter Mental Status * Does person have difficulty concentrating/remembering/making decisions? Answer Entry Date Author No 08/07/2021 10:00 PM Eda Renteria RN documented in this encounter Plan of Treatment Not on file documented as of this encounter Visit Diagnoses Not on filedocumented in this encounter Care Teams County Program Technician Relationship Specialty Start Date End Date Savana Choi MD [address] [facility] [address] [place] [address] PCP - General Family Medicine 08/24/21 documented as of this encounter
--- OUTSIDE RECORDS SUMMARY | 2025-01-09 16:42 | XMS_ITS | Clinical Summary ---
Author Organization [facility] [address] [facility] Address [address] [place] [address] Care Team Providers Care Director Of Design Name Role Phone Randa Smith MD Primary Care Provider [phone] Allergies Active Allergy Reactions Criticality Noted Date Comments Clindamycin Swelling Low 08/17/2021 Lip swelling Penicillins Hives High 08/17/2021 Sulfacetamide Hives High 08/17/2021 Medications atorvastatin (LIPITOR) 40 mg tabletIndication s:Pure hypercholesterol emia, unspecified TAKE 1 TABLET BY MOUTH EVERY DAY 90 Tablet 3 01/13/2021 Active LEVOTHYROXINE 137 mcg tablet TAKE 1 TABLET BY MOUTH EVERY DAY IN THE MORNING ON EMPTY STOMACH 90 Tablet 2 02/21/2021 Active omeprazole (PriLOSEC) 20 mg Capsule, Delayed Release(E.C.)Ind ications:Garcia 's esophagus without dysplasia TAKE 1 CAPSULE BY MOUTH TWICE A DAY 180 Capsule 1 03/17/2021 Active busPIRone (BUSPAR) 30 mg Tablet Take 30 mg by mouth 2 times daily. 06/22/2021 Active escitalopram oxalate (LEXAPRO) 20 mg tablet Take 1.5 Tablets by mouth daily. Active finasteride (PROSCAR) 5 mg tablet Take 5 mg by mouth daily. Active tamsulosin (FLOMAX) 0.4 mg capsule Take 0.4 mg by mouth daily. 08/16/2021 Active atorvastatin (LIPITOR) 40 mg tablet Take 40 mg by mouth daily. Active traMADoL (ULTRAM) 50 mg tablet Take 50 mg by mouth every 6 hours as needed. Active buPROPion HCL (WELLBUTRIN SR) 200 mg Sustained Release 12 hour tablet Take 200 mg by mouth 2 times daily. Active diazePAM (VALIUM) 10 mg tablet Take 10 mg by mouth daily. Active Active Problems Problem Noted Date Diagnosed Date Hypothyroidism 08/17/2021 Alcohol dependence in remission 08/17/2021 Major depressive disorder, recurrent episode, mo derate 08/17/2021 Anxiety disorder 08/17/2021 Sleep apnea 08/17/2021 Atherosclerotic heart disease 08/17/2021 Atherosclerosis of aorta 08/17/2021 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 08/17/2021 Intrinsic (allergic) eczema 08/17/2021 Enlarged prostate without lo wer urinary tract symptoms (luts) 08/17/2021 Chest pain 08/17/2021 Amnesia 08/17/2021 Altered mental status 08/17/2021 Pure hypercholesterolemia 08/17/2021 Benign localized prostatic h yperplasia without lower urinary tract symptoms (LUTS) 08/17/2021 Immunizations Immunization Administration Dates Next Due Influenza Seasonal Unspecified Formulation IM Family History Medical History Relation Name Comments Respiratory Disease Father emphysem a Other Mother alzheimers Other Sibling internal bleedi ng Relation Name Status Comments Father Mother Paternal Grandfather Sibling Social History Tobacco Use Types Packs/Day Years Used Date Smoking Tobacco: Never Alcohol Use Standard Drinks/Week Comments Yes 0 (1 standard drink = 0.6 oz pur e alcohol) Sex and Gender Information Value Date Recorded Sex Assigned at Not on file Legal Sex Male 12:21 PM CDT Gender Identity Not on file Sexual Orientation Not on file Plan of Treatment Health Maintenance Due Date Last Done Comments PNEUMOCOCCAL VACCINE 50+ YEARS (1 of 2 - PCV) 05/31/18 70 FIT-DNA Q 3 years 06/01/1995 FIT/FOBT Q 1 year 06/01/1995 Flex Sig/CT Colonography Q 5 years 06/01/1995 RSV VACCINE (60+ or ) (1 - Risk 50-74 years 1-dose series) 2000 ZOSTER VACCINE (1 of 2) 2000 COLORECTAL SCREENING 10/22/2022 10/23/2019 Colorectal Cancer Screening 10/22/2022 [place] ([place]) Prev entative Visit/Annual Wellness Visit 03/12/2024 INFLUENZA VACCINE (#1) 2024 11/24/2019 DTAP/TDAP/TD VACCINES (2 - Td or Tdap) 08/08/2031 Procedures Procedure Name Priority Date/Time Associated Diagnosis Comments COLONOSCOPY Routine 10/23/2019 from Last 3 Months or Most Recently Relevant to Health Maintenance Results * COLONOSCOPY (10/23/2019) us Abstract Provider HEALTH MAINTENANCE Final Resul t [facility] CLIA# [id number] [address] [facility] [address] [place] [address] from Last 3 Months or Most Recently Relevant to Health Maintenance Insurance Care Teams Director Of Design Relationship Specialty Start Date End Date Randa Smith MD [address] [place] [address] PCP - General Internal Medicine 12/23/21
--- OUTSIDE RECORDS SUMMARY | 2025-01-09 16:42 | XMS_ITS | Encounter Summary ---
Author Organization [facility] Address [address] [place] [address] Care Team Providers Care Skiver Machine Operator Name Role Phone Savana Choi MD [facility] Encounter Details Date Type Department Care Team (Late st Contact Info) Description 08/09/2021 Ophth Exam [facility] [address] [place] [id number] Lizzy Coy MD [address] [place] [address] [address] [place] [id number] Social History Tobacco Use Types Packs/Day Years Used Date Smoking Tobacco: Never Smokeless Tobacco: Never Alcohol Use Standard Drinks/Week Comments No 0 (1 standard drink = 0.6 oz pur e alcohol) Quit 10/14/1979 AUDIT-C Answer Date Recorded Q1: How often do you have a drink containing alc ohol? Monthly or less 08/07/2021 Q2: How many drinks containi ng alcohol do you have on a typical day when you are drinking? 1 or 2 08/07/2021 Q3: How often do you have si x or more drinks on one occasion? 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 [address] [place] [address] PCP - General Family Medicine 08/24/21 documented as of this encounter
--- OUTSIDE RECORDS SUMMARY | 2025-01-09 16:42 | XMS_ITS | Encounter Summary ---
Author Organization [facility] Address [address] [place] [address] Care Team Providers Care Tellers Supervisor Name Role Phone Savana Choi MD Primary Care Provider [facility] Encounter Details Date Type Department Care Team (Late st Contact Info) Description 12/29/2021 Lab Requisition [facility] [address] 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 Answer Date of Assessment Author No 10/27/2021 4:18 PM CDT Kyleigh Tristan RN * Is person blind or have serious difficulty seeing? Answer Date of Assessment Author No 10/27/2021 4:18 PM CDT Kyleigh Tristan RN * Does person have serious difficulty walking/climbing stairs? Answer Date of Assessment Author No 10/27/2021 4:18 PM CDT Kyleigh Tristan RN * Does person have difficulty dressing/bathing? Answer Date of Assessment Author No 10/27/2021 4:18 PM CDT Kyleigh Tristan RN * Does person have difficulty doing errands alone? Answer Date of Assessment Author No 10/27/2021 4:18 PM CDT Kyleigh Tristan RN documented as of this encounter Mental Status * Does person have difficulty concentrating/remembering/making decisions? Answer Entry Date Author No 10/27/2021 4:18 PM CDT Kyleigh Tristan RN documented in this encounter Plan of Treatment Not on file documented as of this encounter Procedures Procedure Name Priority Date/Time Associated Diagnosis Comments DERMATOPATHOLOGY Routine 12/28/2021 12:0 0 AM CDT documented in this encounter Results * DERMATOPATHOLOGY (12/28/2021 12:00 AM CDT) Case Report Dermatopathology Report Case: [id number] Authorizing Provider: Lizzy Bhatt MD Collected: 12/28/2021 12:00 AM Ordering Location: [facility] Received: 12/29/2021 09:56 AM Pathologist: Jayda Correa MD Specimen: Skin, right thigh 2 1:51 PM CDT DERMATOPATHOLOGY LABORATORY Final Diagnosis Specimen A. 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 The specimen consists of a non-oriented ellipse of skin measuring [id number] mm. The epidermal surface is unremarkable. The margin is inked green. The 12 o'clock and 6 o'clock tips are submitted in cassette 1. The remainder of the ellipse is serially sectioned and submitted in cassette 2-3. Jar 0. 2 1:51 PM CDT DERMATOPATHOLOGY LABORATORY Microscopic Description Specimen A. SKIN, right thigh: There is a cup-shaped lesion with central hyperkeratosis with elements of parakeratosis. The epithelial cells making up the hammond of the cup show abundant eosinophilic cytoplasm. There is immaturity of the keratinocytes in the outermost layers of this epithelium. In the dermis there is marked fibroplasia with a mixed inflammatory infiltrate containing eosinophils. This lesion is not present at the margin of the specimen. 2 1:51 PM CDT DERMATOPATHOLOGY LABORATORY Disclaimer An external and internal positive and negative controls are appropriate for the histochemical, immunohistochemical and immunofluorescence stain(s) in this case (if any), except where stated explicitly. The performance characteristics of the stain(s) cited in this report were developed and its performance characteristic determined by the Dermatopathology Laboratory at [facility], directed by Dr. Marni Tran. These tests need not be, and therefore are not, approved by the [place] Food and Drug Administration. The tests are used for clinical purposes. Billing Codes Specimen Charges Stain Charges 43491 1 2 1:51 PM CDT DERMATOPATHOLOGY LABORATORY Embedded Images 2 1:51 PM CDT DERMATOPATHOLOGY LABORATORY Pathology/Cytolog y TISSUE SPECIMEN FROM SKIN / Unknown 12/28/2021 12/29/2021 9:56 AM CDT us Lizzy Bhatt MD LAB - PATHOLOGY/CYTOLOGY OR DERABLES Final Result DERMATOPATHOLOGY LABORATORY [facility] - Department of Dermatology [address] [place] [address], [facility] [place] [phone] documented in this encounter Visit Diagnoses Not on filedocumented in this encounter Care Teams Tellers Supervisor Relationship Specialty Start Date End Date Savana Choi MD [address] [place] [address] PCP - General Family Medicine 08/24/21 documented as of this encounter
--- OUTSIDE RECORDS SUMMARY | 2025-01-09 16:42 | XMS_ITS | Clinical Summary ---
Author Organization [facility] Address [address] [place] [address] Care Team Providers Care Manager Ems Name Role Phone Rochelle Choiia Primary Care Provider [phone] Allergies Active Allergy Reactions Criticality Noted Date Comments Penicillins 09/07/2021 Sulfa Antibiotics 09/07/2021 Medications gabapentin (NEURONTIN) 100 MG capsule 100 mg in the morning and 100 mg at noon and 100 mg before bedtime. Active bacitracin 500 UNIT/GM ointment Apply topically 3 (three) times a day. 14 g 2 Active buPROPion XL (WELLBUTRIN XL) 300 MG 24 hr tablet Take 1 tablet (300 mg total) by mouth daily. 0 2 Active busPIRone (BUSPAR) 30 MG tablet Take 1 tablet (30 mg total) by mouth 2 (two) times a day. 0 2 Active calcium carbonate (TUMS) 500 MG chewable tablet Chew 1 tablet (500 mg total) daily with lunch. 0 2 Active cloNIDine (CATAPRES) 0.1 MG tablet Take 1 tablet (0.1 mg total) by mouth 2 (two) times a day. 0 2 Active famotidine (PEPCID) 20 MG tablet Take 1 tablet (20 mg total) by mouth 2 (two) times a day. 0 2 Active finasteride (PROSCAR) 5 MG tablet Take 1 tablet (5 mg total) by mouth daily. 30 tablet 2 Active fluvoxaMINE (LUVOX) 25 MG tablet Take 1 tablet (25 mg total) by mouth nightly. 0 2 Active levothyroxine (SYNTHROID) 137 MCG tablet Take 1 tablet (137 mcg total) by mouth Daily at 6am. 0 2 Active polyethylene glycol (MIRALAX) 17 g packet Take 17 g by mouth daily. 10 each 2 Active tamsulosin (FLOMAX) 0.4 MG capsule Take 1 capsule (0.4 mg total) by mouth nightly. 30 capsule 2 Active Multiple Vitamins-Minera ls (Therems-M) tablet Take 1 tablet by mouth daily. 0 2 Active traZODone (DESYREL) 50 MG tablet Take 1 tablet (50 mg total) by mouth nightly as needed for sleep. 30 tablet 2 Active Active Problems Problem Noted Date Diagnosed Date Debility 09/07/2021 Scalp infection 09/07/2021 Dislocation of toe joint 09/07/2021 Essential hypertension 09/07/2021 Depressive disorder 09/07/2021 Benign prostatic hyperplasia 09/07/2021 Multiple injuries 09/07/2021 Immunizations Immunization Administration Dates Next Due Pfizer SARS-CoV-2 Vaccination 03/24/2021 Family History Medical History Relation Name Comments COPD Father Cancer Mother Relation Name Status Comments Father Mother Social History Tobacco Use Types Packs/Day Years Used Date Smoking Tobacco: Never Smokeless Tobacco: Never Alcohol Use Standard Drinks/Week Comments Yes 2 (1 standard drink = 0.6 oz pure alcohol) 2 to 4 cans of beer every other week Sex and Gender Information Value Date Recorded Sex Assigned at Not on file Legal Sex Male 12:04 PM EDT Gender Identity Not on file Sexual Orientation Not on file Last Filed Vital Signs Vital Sign Reading Time Taken Comments Blood Pressure 124/75 09/15/2021 7:38 AM CDT Pulse 84 09/15/2021 7:38 AM CDT Temperature 36.9 C (98.4 F) 09/15/2021 7:38 AM CDT Respiratory Rate 20 09/15/2021 7:38 AM CDT Oxygen Saturation 96% 09/15/2021 7:38 AM CDT Inhaled Oxygen Concentration - - Weight 99.3 kg (219 lb) 09/11/2021 2:15 PM CDT Height 177.8 cm (5' 10) 09/07/2021 4:46 PM CDT Body Mass Index 31.42 09/07/2021 4:46 PM CDT Plan of Treatment Health Maintenance Due Date Last Done Comments CT Colonography 1950 Colonoscopy 1950 Colorectal Cancer Screening 1950 FIT-DNA (Cologuard) 1950 FIT 1950 FOBT 1950 Sigmoidoscopy 1950 Annual Visit Topic 06/01/1951 Hepatitis C Screening 1968 Pneumococcal Vaccine: 65+ Ye ars (1 of 2 - PCV) 2000 DTaP/Tdap/Td Vaccines (2 - T d or Tdap) 08/08/2031 08/07/2021 HIB Vaccines Aged Out No longer eligi ble based on patient's age to complete this topic HPV Vaccines Aged Out No longer eligi ble based on patient's age to complete this topic Hepatitis A Vaccines Aged Out No long er eligible based on patient's age to complete this topic Hepatitis B Vaccines Aged Out No long er eligible based on patient's age to complete this topic IPV Vaccines Aged Out No longer eligi ble based on patient's age to complete this topic Meningococcal Vaccine Aged Out No aakash braeden eligible based on patient's age to complete this topic Advance Directives * Full Resuscitation (Latest Code Status on File) Date Activated Date Inactivated Comments 09/07/2021 6:10 PM 09/15/2021 2:44 PM Care Teams Manager Ems Relationship Specialty Start Date End Date Savana Choi [address] [facility] [address] [place] [address] PCP - General 09/08/21
--- OUTSIDE RECORDS SUMMARY | 2025-01-09 16:42 | XMS_ITS | Encounter Summary ---
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 No 08/07/2021 10:00 PM Eda Renteria RN Is person blind or have seri ous difficulty seeing? No 08/07/2021 10:00 PM Eda Renteria RN Does person have serious difficulty walking/climbing stairs? No 08/07/2021 10:00 PM Eda Renteria RN Does person have difficulty dressing/bathing? No 08/07/2021 10:00 PM Eda Renteria RN Does person have difficulty doing errands alone? No 08/07/2021 10:00 PM Oscar Renteria RN Does person have difficulty concentrating/remembering/makin g decisions? No 08/07/2021 10:00 PM Eda Renteria RN * Question Answer Date of Assessment Author Q1: How often do you have a drink containing alcohol? Monthly or less 08/07/2021 10:00 PM Eda Renteria RN Q2: How many drinks containing alcohol do you have on a typical day when you are drinking? 1 or 2 08/07/2021 10:00 PM Eda Renteria RN Q3: How often do you have six or more drinks on one occasion? Never 08/07/2021 10:00 PM Eda Renteria RN * AUDIT-C Score Answer Date of Assessment Author 1 08/07/2021 10:00 PM Eda Renteria RN documented as of this encounter Plan of Treatment Not on file documented as of this encounter Visit Diagnoses Not on filedocumented in this encounter Care Teams Home Support Worker Relationship Specialty Start Date End Date Savana Choi MD [address] [facility] [address] [place] [address] PCP - General Family Medicine 08/24/21 documented as of this encounter
--- OUTSIDE RECORDS SUMMARY | 2025-01-09 16:42 | XMS_ITS | Clinical Summary ---
Author Organization [facility] Address [address] [place] [address] Care Team Providers Care Safety Fire Boss Name Role Phone Savana Choi MD Primary Care Provider U navailable Source Comments [facility],non-owned Affiliates and Associated Physician Practices is amultiple site organization consisting of ambulatory clinics and hospital sitesin [place] and [place]. This disclosure is being madepursuant to the Care Everywhere program and may not contain all information available regarding this patient. Last updated 17.[facility] Allergies Active Allergy Reactions Criticality Noted Date Comments Clindamycin Swelling Low 08/17/2021 Lip swelling Penicillins 07/16/2013 Sulfa Drugs 07/16/2013 Medications * Be aware that medications may not be up to date on this document. Alwaysverify current medications with the patient. buPROPion SR 12hr (WELLBUTRIN SR) 200 MG tablet Take 1 (one) tablet by mouth 2 times daily Active finasteride (PROSCAR) 5 MG tablet Take 1 (one) tablet by mouth once daily Active polyethylene glycol 3350 (MIRALAX) 17 g packet Take 17 (seventeen) g by mouth 2 times daily 2 Active Additional Information Patient not taking.Informant: Patient, Reported on 11/15/2022 senna (SENOKOT EXTRA STRENGTH) 17.2 MG Take 17.2 mg by mouth at bedtime 2 Active Additional Information Patient not taking.Informant: Patient, Reported on 11/15/2022 tamsulosin (FLOMAX) 0.4 MG capsule Take 1 (one) capsule by mouth once daily At the same time every day after a meal. 2 Active Additional Information Patient not taking.Informant: Patient, Reported on 11/15/2022 famotidine (PEPCID) 20 MG tablet Take 1 (one) tablet by mouth 2 times daily 2 Active fluvoxaMINE (LUVOX) 25 MG tablet Take 1 (one) tablet by mouth at bedtime 2 Active Additional Information Patient not taking.Reported on 11/15/2022 traZODone (DESYREL) 50 MG tablet Take 1 (one) tablet by mouth at bedtime 2 Active Additional Information Patient not taking.Reported on 11/15/2022 cloNIDine (CATAPRES) 0.1 MG tablet Take 1 (one) tablet by mouth 2 times daily 2 Active multivitamin daily tablet Take 1 (one) tablet by mouth once daily 2 Active Additional Information Patient not taking.Reported on 11/15/2022 busPIRone (BUSPAR) 30 MG tablet Take 1 (one) tablet by mouth 2 times daily 2 Active meloxicam (MOBIC) 15 MG tablet 1 Active mirtazapine (REMERON) 30 MG tablet TAKE 1/2 TABLET BY MOUTH AT BEDTIME FOR A WEEK. THEN INCREASE TO 1 TABLET BY MOUTH AT BEDTIME 2 Active polyethylene glycol 3350 (MIRALAX) 17 GM/SCOOP powder Take 17 (seventeen) g by mouth once daily 2 Active acetaminophen (Tylenol) 500 MG capsule Take 1 (one) capsule by mouth every 4 hours as needed for Fever or Pain 28 capsule 2 Active Additional Information Patient not taking.Reported on 11/15/2022 carvedilol (Coreg) 6.25 MG tablet TAKE 1 TABLET BY MOUTH EVERY 12 HOURS WITH FOOD 2 Active atorvastatin (Lipitor) 40 MG tablet Take 1 (one) tablet by mouth once daily 2 Active Myrbetriq 50 MG tablet Take 1 (one) tablet by mouth once daily 2 Active amLODIPine (Norvasc) 5 MG tablet Take 1 (one) tablet by mouth once daily 2 Active diazePAM (Valium) 5 MG tablet 2 Active levothyroxine (Synthroid) 150 MCG tablet Take 1 (one) tablet by mouth once daily 2 Active oxyCODONE, immediate release, (Roxicodone) 5 MG tablet Take 1 (one) tablet by mouth every 6 hours as needed for Pain 5 tablet 3 Active Additional Information Patient not taking.Reported on 11/15/2022 Active Problems Problem Noted Date Diagnosed Date Decreased mobility 09/07/2021 Toe dislocation, left, initial encounter 022 Essential hypertension 09/07/2021 Infection of scalp 09/07/2021 Wound infection 08/24/2021 Open wnd of scalp 08/22/2021 Open wound of scalp, unspecified open wound type , sequela 08/22/2021 Alcohol dependence in remission 08/17/2021 Anxiety disorder 08/17/2021 Atherosclerosis of aorta 08/17/2021 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 08/17/2021 Benign prostatic hyperplasia 08/17/2021 Hypothyroidism 08/17/2021 Major depressive disorder, recurrent episode, mo derate 08/17/2021 Pure hypercholesterolemia 08/17/2021 Sleep apnea 08/17/2021 Temporal bone fracture 08/11/2021 Closed fracture of parietal bone 08/11/2021 Pneumocephalus, traumatic 08/11/2021 Scalp laceration 08/11/2021 Contusion of left lung 08/11/2021 Traumatic hematoma of flank 08/11/2021 Hemothorax on left 08/08/2021 SAH (subarachnoid hemorrhage) 08/07/2021 Closed fracture of multiple ribs of right side, initial encounter 08/07/2021 Resolved Problems Problem Noted Date Diagnosed Date Resolved Date Orbit fracture, left 08/11/2021 022 Multiple abrasions 08/11/2021 Other seborrheic dermatitis 03/14/2019 08/25/2021 Dermatochalasis of upper and lower eyelids of both eyes 03/14/2019 08/25/2021 Seborrheic keratosis 03/14/2019 022 Melanocytic nevi of trunk 03/14/2019 Solar lentiginosis 03/14/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 (AF LURIA, FLUZONE TRIVALENT; 6MO+) (IIV3) 11/24/2019 Covid [email or web address] primary monoval ent 12+ yr 0.3mL Purple cap 03/24/2021 INFLUENZA VACCINE 01/24/2022 INFLUENZA VACCINE, HIGH-DOSE , QUADR. (FLUZONE HIGH-DOSE QUADRIVALENT; 65Y+), 0.7 ML (HD-IIV4) 11/19/2020,04/12/2020,03/10/2019 TDAP (7yrs+) 08/07/2021 Family History Medical History Relation Name Comments COPD - Chronic Obstructive Pulmonary Disease Father Emphysema Cancer Mother Relation Name Status Comments Father Mother Social History Tobacco Use Types Packs/Day Years Used Date Smoking Tobacco: Never Smokeless Tobacco: Never Tobacco Cessation:Counseling Given: Not Answered Alcohol Use Standard Drinks/Week Comments No 0 [...] on file Legal Sex Male 6:29 AM 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 Gender Identity Not on file Sexual Orientation Not on file Last Filed Vital Signs Vital Sign Reading Time Taken Comments Blood Pressure 146/85 11/15/2022 3:14 PM CDT Pulse 88 11/15/2022 3:14 PM CDT Temperature 36.8 C (98.3 F) 11/15/2022 3:14 PM CDT Respiratory Rate 20 05/10/2022 10:21 AM 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 Oxygen Saturation 99% 11/15/2022 3:14 PM CDT Inhaled Oxygen Concentration 21% 08/14/2021 8 :28 PM CDT Weight 99.3 kg (219 lb) 11/15/2022 3:14 PM CDT Height 177.8 cm (5' 10) 11/15/2022 3:14 PM CDT Body Mass Index 31.42 11/15/2022 3:14 PM CDT Plan of Treatment Health Maintenance Due Date Last Done Comments COLOGUARD (AGES 45-75) - COLON CA SCREENING 1950 CT COLONOGRAPHY - COLON CA SCREENING 1950 FIT - COLON CA SCREENING 1950 FLEX SIG - COLON CA SCREENING 1950 PNEUMOCOCCAL VACCINE 50+ (1 of 1 - PCV) 2000 ZOSTER VACCINE (1 of 2) 2000 Respiratory Syncytial Virus (RSV) Vaccine Pt: or over 60 yrs (1 - Risk 60-74 years 1-dose series) 2010 COLON MONITORING 07/17/2023 07/16/2013, 09/2013, 07/16/2013, Additional history exists COLONOSCOPY - COLON CA SCREENING 07/17/2023 07/16/2013, 07/16/2013, 07/16/2013, Additional history exists Colorectal Cancer Screening 07/17/2023 DEPRESSION SCREENING 03/12/2024 MEDICARE AWV CALENDAR YEAR 2024 COVID-19 VACCINE ( season) 2024 03/24/2021, 10/05/2020, 09/14/2020 INFLUENZA VACCINE (#1) 2024 2, 11/19/2020, 04/12/2020, Additional history exists DTAP/TDAP/TD VACCINES (2 - Td or Tdap) 08/08/2031 08/07/2021 HEPATITIS C SCREENING Completed 08/24/2021 HEPATITIS B VACCINE Aged Out No longe r eligible based on patient's age to complete this topic HIB VACCINE Aged Out No longer eligi ble based on patient's age to complete this topic HPV VACCINE Aged Out No longer eligi ble based on patient's age to complete this topic MENINGOCOCCAL (Group B) VACCINE SHARED DECISION-MAKING Aged Out No longer eligible based on patient's age to complete this topic MENINGOCOCCAL GROUPS A/C/Y/W VACCINE Aged Out No longer eligible based on patient's age to complete this topic Medical Devices Implanted Type Area Licensed Mental Health Professional Device Identifier Shelf Expiration Date Model / Serial / Lot Integra Bilayer Matrix Wound Dressing Implanted:Qty: 1 on 03/16/2022 by Lizzy Bhatt MD at [facility] Left: Scalp Integra [employer] Sharron [id number] 05/10/2023 [id number] / [id number] / [id number] Procedures Procedure Name Priority Date/Time Associated Diagnosis Comments HEPATITIS C AB SCREEN RFLX NAAT QUANT Routine 08/24/2021 6:34 AM CDT ENDOSCOPY, COLON, SCREENING Routine 07/16/2013 10:25 AM CDT from Last 3 Months or Most Recently Relevant to Health Maintenance Results * HEPATITIS C AB SCREEN RFLX NAAT QUANT (08/24/2021 6:34 AM CDT) Hepatitis C Antibody Non-react lissett Non-reac tive 08/24/2021 7:25 AM CDT [facility] Comment:Hepatitis C Antibody screen indicates no serologic evidence of past or current infection with Hepatitis C Virus. Patients with unexplained liver disease who are immunocompromised or suspected of having acute Hepatitis C infection may benefit from Nucleic Acid Test (KACIE) for Hepatitis C Viral RNA to confirm Hepatitis C status. Blood BLOOD SPECIMEN / Unknown Lab Venipuncture / Unknown 08/24/2021 6:34 AM CDT 08/24/2021 6:40 AM CDT us Linda Lizama APRN-ASSISTANT [facility] - CHEMISTRY ORDERABL ES Final Result [facility] [address] [place] [id number], [facility] [phone] * ENDOSCOPY, COLON, SCREENING (07/16/2013 10:25 AM CDT) Report Endoscopy POC _ Patient Name: Scott Yee Procedure Date: 07/16/2013 10:25 AM Date of : 1950 Admit Type: Outpatient Age: 63 Gender: Male Attending MD: Jones Beard MD _ Procedure: Colonoscopy Indications: Screening for colorectal malignant neoplasm, Last colonoscopy: 2001 Providers: Jones Beard MD (Doctor), Guevara Umana RN, Roselyn Sheth Referring MD: Andrew Juares MD (Referring MD) Medicines: Fentanyl 300 micrograms IV, Midazolam 10 mg IV, Diphenhydramine 50 mg IV Complications: No immediate complications. _ Procedure: Pre-Anesthesia Assessment: - The anesthesia plan was to use moderate sedation/analgesi a (conscious sedation). - See the other procedure note for documentation of the pre-procedure assessment. - Medication in this note total both procedures today After I obtained informed consent, the scope was passed under direct vision. Throughout the procedure, the patient's blood pressure, pulse, and oxygen saturations were monitored continuously. The Colonoscope was introduced through the anus and advanced to the cecum, identified by appendiceal orifice and ileocecal valve. The Colonoscope was introduced through the and advanced to. The colonoscopy was somewhat difficult due to significant looping. The patient tolerated the procedure fairly well. The quality of the bowel preparation was excellent. Unable to retroflex cecum. Right colon /hepatic flexure and cecum re-evaluated repetitively in forward view. The entire colon was carefully inspected clearing any debris with lavage/suction,de pressing and methodically looking between all folds. Impression: - One 4 mm polyp in the ascending colon. Resected and retrieved. - Two 13 to 15 mm polyps at the hepatic flexure. Resected and retrieved. - One 14 mm polyp in the proximal descending colon. Resected and retrieved. - One 17 mm polyp in the mid descending colon. Resected and retrieved. - One 8 mm polyp in the distal descending colon. Resected and retrieved. - Diverticulosis in the sigmoid colon. - Haustrations increased. - The distal rectum and anal verge are normal on retroflexion view. - One small polyp in the transverse colon. Resected and retrieved. Findings: The perianal and digital rectal examinations were normal. Pertinent negatives include normal prostate (size, shape, and consistency). A polyp was found in the ascending colon. The polyp was 4 mm in size. The polyp was removed with a cold biopsy forceps. Resection and retrieval were complete. Two flat and semi-sessile polyps were found at the hepatic flexure. The polyps were 13 to 15 mm in size. These polyps were removed with a cold snare. Resection and retrieval were complete. Edge flatter polyp trimmed cold and had to pull larger polyp out and reinsert scope to that site. A flat polyp was found in the proximal descending colon. The polyp was 14 mm in size. The polyp was removed with a piecemeal technique using a cold snare. Resection and retrieval were complete. Edge/residual cold forceps trimming. A pedunculated polyp was found in the mid descending colon. The polyp was 17 mm in size. The polyp was removed with a hot snare. Resection and retrieval were complete. Had to remove on scope and then reinsert to same area. A flat polyp was found in the distal descending colon. The polyp was 8 mm in size. The polyp was removed with a cold snare. Resection and retrieval were complete. Base trimmed cold. Multiple diverticula were found in the sigmoid colon. Increased haustrations were found in the sigmoid colon. The retroflexed view of the distal rectum and anal verge was normal and showed no anal or rectal abnormalities. A polyp was found in the transverse colon. The polyp was small in size. The polyp was removed with a cold biopsy forceps. Resection and retrieval were complete. _ Recommendation: - Discharge patient to home (ambulatory). - Continue present medications. - No aspirin, ibuprofen, naproxen, or other non-steroidal anti-inflammatory drugs for 2 weeks after polyp removal. - Cardiac/stroke preventive aspirin okay at lowest dose acceptable to sap bw consultant/PCP/n eurologist - Await pathology results. - see EGD instructions as well - Next colon interval will be determined by results of pathology - Low fat ,hi fiber diet with increased folate/calcium/Vit D. Keep weight toward low normal range. - per 2012 CDC recommendations, people born 1945-65 should have screen for Hepatitis C. Contact PCP to arrange or can donate blood and [facility] will check per routine donor blood screening.They also check for Hep B and HIV. - Avoid coffee/tea/cola/ch ocolate-other caffeine sources. - Use fiber, for example Citrucel, Fibercon, Konsyl or Metamucil. - weight loss is recommended - Call office 2 weeks if not notified of results - Report symptoms such as pain,bleeding,[place] bowel habits,etc. as colonoscopies are not perfect and ocasionally a lesion may show up before next routine procedure. - Call if develop any trouble or pain with swallowing. Procedure Code(s): --- Professional --- 15522, Colonoscopy, flexible, proximal to splenic flexure; with removal of tumor(s), polyp(s), or other lesion(s) by snare technique 24236, 59, Colonoscopy, flexible, proximal to splenic flexure; with biopsy, single or multiple --- Technical --- 01859, Colonoscopy, flexible, proximal to splenic flexure; with removal of tumor(s), polyp(s), or other lesion(s) by snare technique 47319, 59, Colonoscopy, flexible, proximal to splenic flexure; with biopsy, single or multiple Diagnosis Code(s): --- Professional --- V76.51, Special screening for malignant neoplasms of colon 211.3, Benign neoplasm of colon 787.99, Other symptoms involving digestive system 562.10, Diverticulosis of colon (without mention of hemorrhage) --- Technical --- V76.51, Special screening for malignant neoplasms of colon 211.3, Benign neoplasm of colon 787.99, Other symptoms involving digestive system 562.10, Diverticulosis of colon (without mention of hemorrhage) CPT copyright 2013 [employer]. All rights reserved. The codes documented in this report are preliminary and upon implementation consultant review may be revised to meet current compliance requirements. Jones Beard MD 07/16/2013 11:57 AM Number of Addenda: 0 Note Initiated On: 07/16/2013 10:25 AM [facility] 07/16/2013 10:2 5 AM CDT Narrative [facility] - 07/16/2013 11:59 AM CDT Procedure Note Jones Beard MD - 07/16/2013 11:59 AM CDT Jones Beard MD GI PROCEDURE ORDERABLES Edite d [facility] from Last 3 Months or Most Recently Relevant to Health Maintenance Insurance TNA MEDICARE ADV AETNA TNA AETNA MEDICARE ADV SELF PAY NO INSURANCE Member Subscriber Plan / Payer (Ef fective for All Dates) Name:Scott Yee Goldy Member ID:Not on file Relation to Subscriber:Not on file Name:SCOTT YEE Subscriber ID:Not on file Address: [address] [place] [address] Payer ID:Not on file Group ID:Not on file Type:Self Pay Address: [place], [place] AETNA MEDICARE ADV SELF PAY NO INSURANCE Member Subscriber Plan / Payer (Ef fective for All Dates) Name:Scott Yee Member ID:Not on file Relation to Subscriber:Not on file Name:SCOTT YEE Subscriber ID:Not on file Address: [place] [address] Payer ID:Not on file Group ID:Not on file Type:Self Pay Address: [place], [place] AETNA MEDICARE ADV SELF PAY NO INSURANCE Member Subscriber Plan / Payer (Ef fective for All Dates) Name:Scott Yee Member ID:Not on file Relation to Subscriber:Not on file Name:SCOTT YEE Subscriber ID:Not on file Address: [place] [address] Payer ID:Not on file Group ID:Not on file Type:Self Pay Address: [place], [place] [employer] AETNA MEDICARE ADV Advance Directives * Full Code (Latest Code Status on File) Date Activated Date Inactivated Comments 09/07/2021 4:27 PM 09/15/2021 12:25 PM * Full Code Date Activated Date Inactivated Comments 08/22/2021 7:30 PM 09/07/2021 4:18 PM * Full Code Date Activated Date Inactivated Comments 08/07/2021 6:43 PM 08/15/2021 7:13 PM Care Teams Safety Fire Boss Relationship Specialty Start Date End Date Savana Choi MD [address] [facility] [address] [place] [address] PCP - General Family Medicine 08/24/21
== END 2025-01-09 16:36 | disposition home or self-care (01) ==
LOC: ANHLAB 16:40
PROVIDERS: PCP Physician Assistant; Visit Provider Physician Assistant
DX: S82.435A Nondisplaced oblique fracture of shaft of left fibula, initial encounter for closed fracture (principal); X58.XXXA Exposure to other specified factors, initial encounter; R06.00 Dyspnea, unspecified
CPT/HCPCS: 71046; 73562

== ENCOUNTER 2025-01-09 17:20 | Emergency (ER) | payer MEDICARE, SELFPAY ==
[2025-01-09 17:24] VITALS: BP 122/52; PULSE 80; RESP 18; TEMP 36.7; O2SAT 98
[2025-01-09 18:53] VITALS: BP 141/70; PULSE 86; RESP 18; O2SAT 96
--- NOTE | 2025-01-09 19:37 | ED.GENADULT ---
HPI - General Adult General Chief complaint: Extremity Injury, Lower Stated complaint: left leg deformity Time Seen by Provider: 01/09/25 18:45 History of Present Illness HPI narrative: 74-year-old male presenting with left knee pain. States that a couple weeks ago he was sitting in his chair for a long period of time then stood up and took 3 steps and his left knee went out on him and he felt a pop. He did not fall. He states he has been struggling to get around since then. He lives at home and he normally gets around on his own, but this injury has affected his day-to-day life and he is struggling to ambulate normally. The pain is along his lateral left knee and radiates up to his hip. He endorses not being able to sleep at night as well as a decrease in appetite due to the pain. He rates his pain a 9/10 at this moment. Had x-rays done earlier ordered by PCP showing nondisplaced extra articular fracture at the proximal diaphysis of the left fibula. Patient denies any numbness or tingling. Related Data Home Medications ?Medication ?Instructions ?Recorded ?Confirmed ?Last Taken ?Type mirabegron 25 mg tablet,extended 25 mg PO DAILY 07/04/23 01/09/25 Unknown History release 24 hr (Myrbetriq) bupropion HCl 300 mg 24 hr tablet, 300 mg PO QAM 09/19/23 01/09/25 Unknown History extended release vortioxetine 10 mg tablet 10 mg PO DAILY 08/11/24 01/09/25 Unknown History (Trintellix) Allergies Allergy/AdvReac Type Severity Reaction Status Date / Time Penicillins Allergy Severe HIVES Verified 01/09/25 17:27 Sulfa (Sulfonamide Allergy Severe HIVES Verified 01/09/25 17:27 Antibiotics) Review of Systems Review of Systems: All systems reviewed & are unremarkable except as noted in HPI and below PMFSH Past Medical History Medical History Cellulitis of right thigh Disorder of thyroid Skin graft failure Scalp injury Neoplasm of uncertain behavior of skin Skin lesion of lower extremity Degenerative joint disease of right hip ADD (attention deficit disorder) Hypertension AVM (arteriovenous malformation) of stomach, acquired Hypothyroidism (acquired) CAD (coronary artery disease) Hyperlipidemia Benign essential HTN Arthritis Eczema Anemia Urinary frequency Hypothyroidism GERD (gastroesophageal reflux disease) Sleep apnea Shortness of breath Hoarseness Hearing loss Weight gain Surgical History Surgical History S/P CABG x 3 Family History Family History Other Arthritis Social History Social History Social History: Smoking status: Never smoker Second hand tobacco smoke exposure: No Alcohol intake: current Drinks per week: 6 Alcohol use details: Occasionally Substance use: current Substance use type: marijuana Other substance usage details: smokes marijuana about 2 times weekly to get to sleep Lack of Transportation: No Lack of Food: Never True Current Housing: I Have Housing Concerned About Future Housing: No Difficulty Paying Gas/Electric Bills: No Difficulty Paying for Meds: No Currently Unemployed: YES Education: Decline to Answer Difficulty w/ Childcare or Family Care: No Living arrangements: alone Occupation/Education: retired Gender identity (if verbalized by the patient): Male Sexual Orientation (if Verbalized by the Patient): Straight or Heterosexual Spiritual care concerns: No Exam Narrative: GENERAL: Well-nourished, mild distress due to pain. HEAD: Normocephalic, atraumatic. EYES: PERRLA and EOMI. ENT: Nares clear, no rhinorrhea or epistaxis. Mucous membranes moist. Oropharynx without tonsillar hypertrophy exudate or other lesions. Bilateral TMs pearly enciso non-bulging NECK: Supple. No adenopathy or masses. No carotid bruits or JVD CHEST: Clear to auscultation. No respiratory distress. No wheezes rales or rhonchi HEART: Regular rate and rhythm. No murmur heard. Normal peripheral pulses. ABDOMEN: Soft, nontender, nondistended, normal active bowel sounds. EXTREMITIES: Normal range of motion. No edema. Neurovascular intact. Good pulses. Normal ROM and 5/5 strength. ROM limited in injured knee due to pain. SKIN: Warm, dry, no rash. NEURO: No focal deficits. Alert and oriented x3. PSYCH: Normal mood and affect Course Vital Signs Vital signs: Vital Signs Temperature 98.0 F 01/09/25 17:24 Pulse Rate 80 01/09/25 17:24 Respiratory Rate 18 10/31/25 17:24 Blood Pressure 122/52 L 01/09/25 17:24 Pulse Oximetry 98 01/09/25 17:24 Oxygen Delivery Room Air 01/09/25 17:24 Temperature 98.0 F 01/09/25 17:24 Pulse Rate 86 01/09/25 18:53 Respiratory Rate 18 01/09/25 18:53 Blood Pressure 141/70 H 01/09/25 18:53 Pulse Oximetry 96 01/09/25 18:53 Oxygen Delivery Room Air 01/09/25 17:24 Medical Decision Making MDM Narrative Medical decision making narrative: 74-year-old male presenting with left knee pain. States that a couple weeks ago he was sitting in his chair for a long period of time then stood up and took 3 steps and his left knee went out on him and he felt a pop. He did not fall. He states he has been struggling to get around since then. He lives at home and he normally gets around on his own, but this injury has affected his day-to-day life and he is struggling to ambulate normally. The pain is along his lateral left knee and radiates up to his hip. He endorses not being able to sleep at night as well as a decrease in appetite due to the pain. He rates his pain a 9/10 at this moment. Had x-rays done earlier ordered by PCP showing nondisplaced extra articular fracture at the proximal diaphysis of the left fibula. Patient denies any numbness/tingling, maintains good pulses, and is neurovascular intact. Given Flexeril and Davy while in the ED. Improved knee pain but did not improve the pain in his hip. Given diclofenac and a lidocaine patch which improved his pain as well. Consulted Dr. Ramires with ortho. Given recommendation to be weight bearing as tolerated stating a cane or walker would be necessary and to see him in clinic next week. Patient states he is able to obtain one of these on his own. D/c home with plan to see Dr. Ramires next week and with PRN Flexeril, Davy, and Diclofenac. Patient is stable and agreeable to going home. Medical Records Medical records reviewed: Yes I reviewed the external patient's medical records. Vital Signs Vital Signs: Vital Signs Temperature 98.0 F 01/09/25 17:24 Pulse Rate 80 01/09/25 17:24 Respiratory Rate 18 01/09/25 17:24 Blood Pressure 122/52 L 01/09/25 17:24 Pulse Oximetry 98 01/09/25 17:24 Oxygen Delivery Room Air 01/09/25 17:24 Temperature 98.0 F 01/09/25 17:24 Pulse Rate 86 01/09/25 18:53 Respiratory Rate 18 01/09/25 18:53 Blood Pressure 141/70 H 01/09/25 18:53 Pulse Oximetry 96 01/09/25 18:53 Oxygen Delivery Room Air 01/09/25 17:24 Lab Data Lab results reviewed: Yes I reviewed the patient's lab results. Imaging Data Attestation: I personally reviewed and interpreted this imaging study as follows: Radiologist's impression: Nondisplaced extra articular fracture at the proximal diaphysis of the left fibula Critical Care Time Critical Care Time Critical Care Time: No Discharge Plan Discharge Clinical Impression: Left fibular fracture Qualifiers: Encounter type: initial encounter Fibula location: proximal Fracture type: closed Fracture morphology: unspecified fracture morphology Qualified Code(s): S82.832A - Other fracture of upper and lower end of left fibula, initial encounter for closed fracture Acute knee pain Qualifiers: Laterality: left Qualified Code(s): M25.562 - Pain in left knee Patient Disposition: Home Condition: Stable Additional Instructions: Weight-bearing as tolerated. Use a cane or walker as needed. Follow-up with Dr. Ramires in clinic next week. Flexeril, Davy, and diclofenac PRN for pain. Take muscle relaxers and pain medicine as needed and prescribed. Recommend taking Flexeril and Davy at night as it may cause sedation. Do not drive, operate heavy machinery, drink alcohol while on muscle relaxers or pain medicine as this may cause further sedation. Take Diclofenac with food. Come back for any concerning symptoms. Patient Language: Kenyan Prescriptions: New cyclobenzaprine 5 mg tablet 5 mg PO TID PRN (Reason: muscle spasm) Qty: 15 0RF diclofenac potassium 50 mg tablet 50 mg PO BID PRN (Reason: pain) Qty: 14 0RF hydrocodone-acetaminophen 5-325 mg tablet 1 tablet PO Q6H PRN (Reason: pain) Qty: 15 0RF No Action Myrbetriq 25 mg tablet extended release 24 hr 25 mg PO DAILY Patient Comments: as per urology triamcinolone acetonide 0.1 % cream 1 applic topical BID Qty: 30 1RF bupropion HCl 300 mg tablet extended release 24 hr 300 mg PO QAM Patient Comments: per psych terbinafine HCl [Antifungal (terbinafine)] 1 % cream 1 applic topical BID Qty: 30 0RF Trintellix 10 mg tablet 10 mg PO DAILY prednisone 10 mg tablet 10 mg PO DAILY Qty: 30 0RF Rx Instructions: Take PO 4 tabs daily x3 days, 3 tabs daily x3 days, 2 tabs daily x3 days, 1 tab daily x3 days clonazepam 0.5 mg tablet 0.5 mg PO BID Qty: 60 0RF ferrous sulfate 325 mg (65 mg iron) tablet 325 mg PO DAILY Qty: 90 1RF tamsulosin 0.4 mg capsule See Rx Instructions .ROUTE .COMPLEX Qty: 90 1RF Dose Instruction: TAKE 1 CAPSULE BY MOUTH EVERY DAY Rx Instructions: TAKE 1 CAPSULE BY MOUTH EVERY DAY amlodipine 5 mg tablet See Rx Instructions .ROUTE .COMPLEX Qty: 90 1RF Dose Instruction: TAKE 1 TABLET BY MOUTH EVERY DAY Rx Instructions: TAKE 1 TABLET BY MOUTH EVERY DAY atorvastatin 40 mg tablet See Rx Instructions .ROUTE .COMPLEX Qty: 100 1RF Dose Instruction: TAKE 1 TABLET BY MOUTH EVERY DAY Rx Instructions: TAKE 1 TABLET BY MOUTH EVERY DAY levothyroxine 150 mcg tablet See Rx Instructions .ROUTE .COMPLEX Qty: 90 2RF Dose Instruction: TAKE 1 TABLET BY MOUTH EVERY DAY Rx Instructions: TAKE 1 TABLET BY MOUTH EVERY DAY esomeprazole magnesium 40 mg capsule,delayed release(DR/EC) 40 mg PO DAILY Qty: 30 3RF carvedilol 6.25 mg tablet See Rx Instructions .ROUTE .COMPLEX Qty: 180 2RF Dose Instruction: TAKE 1 TABLET BY MOUTH EVERY 12 HOURS WITH FOOD Rx Instructions: TAKE 1 TABLET BY MOUTH EVERY 12 HOURS WITH FOOD finasteride 5 mg tablet See Rx Instructions .ROUTE .COMPLEX Qty: 90 1RF Dose Instruction: TAKE 1 TABLET BY MOUTH EVERY DAY Rx Instructions: TAKE 1 TABLET BY MOUTH EVERY DAY losartan 100 mg tablet See Rx Instructions .ROUTE .COMPLEX Qty: 90 2RF Dose Instruction: TAKE 1 TABLET BY MOUTH EVERY DAY Rx Instructions: TAKE 1 TABLET BY MOUTH EVERY DAY Follow-up/Referrals: Adrienne Kaiser, RIA [Primary Care Provider, [facility]] Isaias Ramires MD [Physician, Orthopedics]
[2025-01-09] MEDS: CYCLOBENZAPRINE HCL 5 MG TABLET PO (20:01)
[2025-01-09] MEDS: HYDROcodone/acetaminophen (*CRX) 5-325 MG TABLET 1 TAB PO (20:01)
[2025-01-09] MEDS: DICLOFENAC SOD 75 MG TABLET.EC PO (21:16)
[2025-01-09] MEDS: LIDOCAINE 5% PATCH 1 PATCH TRANSDERM (21:17)
[2025-01-09 22:14] VITALS: BP 117/63; PULSE 98; RESP 18; O2SAT 96
== END 2025-01-09 22:17 | disposition home or self-care (01) ==
PROVIDERS: PCP Physician Assistant
DX: S89.292A Other physeal fracture of upper end of left fibula, initial encounter for closed fracture (principal); I10 Essential (primary) hypertension; I25.10 Atherosclerotic heart disease of native coronary artery without angina pectoris; E03.9 Hypothyroidism, unspecified; K21.9 Gastro-esophageal reflux disease without esophagitis; M16.11 Unilateral primary osteoarthritis, right hip; G47.30 Sleep apnea, unspecified; F98.8 Other specified behavioral and emotional disorders with onset usually occurring in childhood and adolescence; Z95.1 Presence of aortocoronary bypass graft; Z79.899 Other long term (current) drug therapy; X50.9XXA Other and unspecified overexertion or strenuous movements or postures, initial encounter
CPT/HCPCS: 71046; 73562; 99283; A9270